=== PATIENT | female | born 1935 | race Caucasian/White ===

== ENCOUNTER → 2016-11-30 10:40 | Outpatient (CLI) | payer MEDICARE ==
[2015-07-12 12:17] VITALS: BMI 19.8
[~2016-11-30 10:40] MED LIST: AFRIN15 ML NASAL; ALBUTEROL0.63 MG/3 INH; BIOTIN5 MG PO; BYSTOLIC10 MG PO; CATAPRES0.1 MG; CELEBREX200 MG PO; CHRONULAC30 ML PO; DURAGESIC1 PATCH .2 TRANSDERM; DURAGESIC1 PATCH .4; DURAGESIC1 PATCH .7 TD; IMDUR60 MG PO; KLONOPIN0.5 MG PO; LASIX20 MG PO; LEVAQUIN750 MG PO; MYSOLINE 50 MG50 MG PO; NEURONTIN 300300 MG PO; NORVASC5 MG PO; PLAVIX75 MG PO; POTASSIUM99 M1 PO; PRILOSEC20 MG PO; PROAIR HFA8.5 GM INH; PROTONIX 40 MG40 MG IV; PROTONIX40 MG PO; RESTASIS EYE DR30 EA EACH EYE; SINGULAIR10 MG PO; TENORMIN25 MG PO; VALIUM 2 MG TAB2 MG PO; VIBRAMYCIN 100100 MG PO; VITAMIN D2000 UNIT PO; ZANAFLEX6 MG PO; ZOCOR80 MG PO; ZOVIRAX800 MG PO
== END | disposition home or self-care (01) ==
LOC: D.RAD 10:40
DX: J44.9 Chronic obstructive pulmonary disease, unspecified (principal)

== ENCOUNTER 2017-04-11 11:16 | Emergency (ER) | payer MEDICARE ==
[2015-07-12 12:17] VITALS: BMI 19.8
== END 2017-04-11 13:11 | disposition home or self-care (01) ==
LOC: D.ER 11:16
DX: S00.03XA Contusion of scalp, initial encounter (principal); W19.XXXA Unspecified fall, initial encounter; Y93.89 Activity, other specified; Y92.89 Other specified places as the place of occurrence of the external cause; I10 Essential (primary) hypertension; J44.9 Chronic obstructive pulmonary disease, unspecified; Z99.81 Dependence on supplemental oxygen

== ENCOUNTER → 2017-06-08 08:49 | Outpatient (CLI) | payer MEDICARE ==
[~2017-06-08] VITALS: Ht 154.9 cm; Wt 55.5 kg
--- NOTE | ~2017-06-08 | HEMODYNAMI ---
PATIENT:BRITT ETIENNE MEDICAL RECORD: [id number] : 39 LOCATION:[facility] ADMISSION DATE: 06/08/17 Generatedon:06/08/201712:49 Patient name: BRITT ETIENNE Patient #: [id number] SSN: : 1935 Date of study: 06/08/2017 Page: Of Hemodynamic Procedure Report Patient Data Patient Demographics Procedure consent was obtained First Name: BRITT Gender: Female Last Name: JAIMIE : 1935 [facility] Initial: HARLAN Age: 81 year(s) Patient #: [id number] Race: Additional ID: [id number] Contact details Address: [address] [address] State: [place] City: [place] Zip code: [address] Past Medical History Allergies: No known allergies Admission Admission Data Admission Date: 06/08/2017 Admission Time: 8:49 Procedure Procedure Types Cath Procedure Diagnostic Procedure LHC LHC w/Coronaries w/Grafts Miscellaneous Procedures Moderate Sedation up to 15 minutes Procedure Description Procedure Date Procedure Date: 06/08/2017 Procedure Start Time: 12:35 Procedure End Time: 12:49 Procedure Staff Name Function Dean Bonds MD Performing Physician Megha Corea RT Scrub Kory Toussaint RN Nurse Elsa Tatum RT Monitor Procedure Data Cath Procedure Fluoroscopy Diagnostic fluoroscopy Total fluoroscopy Time: 2.7 time: 2.7 min min Diagnostic fluoroscopy Total fluoroscopy dose: 318 dose: 318 mGy mGy Contrast Material Contrast Material Type Amount (ml) Isovue 300 71 Entry Location Entry Primary Successful Side Size Upsize Upsize Entry Closure Succes sful Closure Location (Fr) 1 (Fr) 2 (Fr) Remarks Device Remarks Femoral Right 5 Fr Exoseal artery Estimated blood loss: 5 ml Diagnostic catheters Device Type Used For End Catheter Placement Cordis 5Fr Pigtail LV Angiography Catheter (MP) Cordis 5Fr JL 4.0 Left Coronary Catheter (MP) Angiography Cordis 5Fr 3DRC Catheter Internal mammary (MP) arteriography Cordis 5Fr 3DRC Catheter Right Coronary (MP) Angiography Cordis 5Fr 3DRC Catheter SVG Angiography (MP) Procedure Complications No complications Procedure Medications Medication Administration Route Dosage 0.9% NaCl I.V. 100 ml/hr Oxygen NC 2 l/min Heparin Flush Bag added to field 2 bags (1000units/500ml NS) Lidocaine 2% added to field 20 Versed I.V. 1 mg Fentanyl I.V. 50 mcg Versed I.V. 1 mg Fentanyl I.V. 50 mcg Hemodynamics Rest Heart Rate: 51 (bpm) Snapshots Pre Cath Intra NCS Post Cath Vital Signs Time Heart Resp SPO2 etCO2 [id number] NIBP (mmHg) Rhythm Pain Sedation Rate (ipm) (%) (mmHg) (mmHg) Status Level (bpm) 12:29:59 52 116 100 0 0 Measuring NSR 0 (11) 10(A) , No pain 12:30:27 53 18 100 0 0 149/67(117) NSR 0 (11) 10(A) , No pain 12:35:12 51 14 100 0 0 107/58(86) NSR 0 (11) 10(A) , No pain 12:39:50 55 14 93 0 0 100/50(74) NSR 0 (11) 9(A) , No pain 12:44:25 62 14 98 0 0 113/57(89) NSR 0 (11) 9(A) , No pain 12:49:24 57 7 98 0 0 Measuring NSR 0 (11) 9(A) , No pain Medications Time Medication Route Dose Verified Delivered Reason Notes Effe ctiveness by by 12:25:09 0.9% NaCl I.V. 100 Kory Kory Per ml/hr Norbert Toussaint physician RN RN 12:25:20 Oxygen NC 2 Kory Kory Per l/min Norbert Toussaint physician RN RN 12:25:33 Heparin Flush added 2 Kory Kory used for Bag to bags Norbert Toussaint procedure (1000units/500ml field RN RN NS) 12:25:50 Lidocaine 2% added 20ml Kory Kory for local to vial Lorigan Lorigan anesthetic field RN RN 12:32:45 Versed I.V. 1 mg Kory Kory for Lorigan Lorigan sedation RN RN 12:32:55 Fentanyl I.V. 50 Kory Kory for mcg Lorigan Lorigan sedation RN RN 12:37:20 Versed I.V. 1 mg Kory Horn for Lorigan Lorigan sedation RN RN 12:37:28 Fentanyl I.V. 50 Kory Horn for mcg Lorigan Lorigan sedation RN sql programmer analyst Log Time Note 12:16:01 Elsa Tatum RT(R) sent for patient. Start room use. 12:16:02 Time tracking: Regular hours 12:16:06 Plan of Care:Hemodynamics will remain stable., Cardiac rhythm will remain stable., Comfort level will be maintained., Respiratory function will remain adequate., Patient/ family verbilizes understanding of procedure., Procedure tolerated without complication., Recovers from procedure without complications.. 12:19:59 Patient received from Pre/Post Procedure Room to CCL 1 Alert and oriented. Tansferred to table in Supine position. 12:25:09 0.9% NaCl 100 ml/hr I.V. was administered by Kory Toussaint RN; Per physician; 12:25:20 Oxygen 2 l/min NC was administered by Kory Toussaint RN; Per physician; 12:25:33 Heparin Flush Bag (1000units/500ml NS) 2 bags added to field was administered by Kory Toussaint RN; used for procedure; 12:25:50 Lidocaine 2% 20ml vial added to field was administered by Kory Toussaint RN; for local anesthetic; 12:28:49 Vital chart was started 12:30:07 Warm blankets applied, and raúl hugger turned on for patient comfort. 12:30:08 Correct patient and procedure confirmed by team. 12:30:09 Signed procedure consent form obtained from patient. 12:30:10 ECG and BP/O2 sat monitors applied to patient. 12:30:12 Baseline sample Acquired. 12:30:15 Rhythm: sinus rhythm 12:30:16 Full Disclosure recording started 12:30:30 H&P Date Dictated: 06/03/2017 Within 30 days and on chart., H&P Addendum completed by physician on day of procedure. (MUST COMPLETE FOR ALL OUTPATIENTS). 12:30:32 Pre-procedure instructions explained to patient. 12:30:32 Pre-op teaching completed and patient verbalized understanding. 12:30:33 Family in waiting room. 12:30:35 Patient NPO since Midnight. 12:30:42 Patient allergic to No known allergies 12:30:44 Is the patient allergic to Iodine/contrast media? No. 12:30:45 Is patient on blood thinner?No 12:30:48 Patient diabetic? No. 12:30:52 Previous problem with sedation/anesthesia? No ? 12:30:53 Snore? No 12:30:54 Sleep apnea? No 12:30:55 Deviated septum? No 12:30:56 Opens mouth fully? Yes 12:30:56 Sticks out tongue? Yes 12:30:59 Airway obstruction? Yes COPD 12:31:02 Dentures? No ? 12:31:05 Pre procedure: right dorsailis pedis pulse 2+ Normal; easily identifiable; not easily obliterated 12:31:07 Patient pain scale 0/10 ?. 12:31:14 IV patent on arrival in left hand with 0.9% NaCl at O. 12:31:20 Lab results completed and on chart. 12:31:23 Right groin area was prepped with chlora-prep and draped in sterile fashion 12:31:24 Alarms reviewed by R. N. 12:31:24 Sharps counted by scrub and verified by R.N. 12:31:25 Final Timeout: patient, procedure, and site verified with staff and physician. All members of the team are in agreement. 12:31:26 Right groin site verified by team. 12:31:29 Physical assessment completed. ASA score P 2 - A patient with mild systemic disease as per Dean Bonds MD. 12:31:32 Sedation plan: IV Moderate Sedation Versed, Fentanyl 12:32:45 Versed 1 mg I.V. was administered by Kory Toussaint RN; for sedation; 12:32:55 Fentanyl 50 mcg I.V. was administered by Kory Toussaint RN; for sedation; 12:35:32 Zero performed for pressure channel P1 12:35:44 Procedure started. 12:35:47 Local anesthetic to right femoral artery with Lidocaine 2% by Dean Bonds MD.INITIAL ACCESS ONLY 12:36:36 A 5 Fr sheath was inserted into the Right Femoral artery 12:37:05 Use device set Femoral Dx 12:37:06 Acist Syringe opened to sterile field. 12:37:06 Bag Decanter opened to sterile field. 12:37:06 Medline Cath Pack opened to sterile field. 12:37:07 Terumo 5Fr Tustin Sheath opened to sterile field. 12:37:07 St Thierno 260cm J .035 wire opened to sterile field. 12:37:08 Acist Hand Control opened to sterile field. 12:37:08 Acist Manifold opened to sterile field. 12:37:09 Diagnostic Infinity 5Fr Multipack catheter opened to sterile field. 12:37:09 Tegaderm 4 x 4 opened to sterile field. 12:37:13 A Cordis 5Fr Pigtail Catheter (MP) was advanced over the wire and used for LV Angiography. 12:37:20 Versed 1 mg I.V. was administered by Kory Toussaint RN; for sedation; 12:37:28 Fentanyl 50 mcg I.V. was administered by Kory Toussaint RN; for sedation; 12:37:32 LV gram done using MURPHY 12:37:39 Injector settings: Ml/sec: 10, Volume: 20, 12:37:52 Catheter removed. 12:37:58 A Cordis 5Fr JL 4.0 Catheter (MP) was advanced over the wire and used for Left Coronary Angiography. 12:40:10 Catheter removed. 12:40:24 A Cordis 5Fr 3DRC Catheter (MP) was advanced over the wire and used for Internal mammary arteriography. 12:41:22 A Cordis 5Fr 3DRC Catheter (MP) was advanced over the wire and used for Right Coronary Angiography. 12:43:07 A Cordis 5Fr 3DRC Catheter (MP) was advanced over the wire and used for SVG Angiography.to OM 12:43:08 Catheter removed. 12:43:29 Sheath removed intact; hemostasis achieved with Exoseal to the Right Femoral artery. 12:43:32 Procedure ended.(Physican Out) 12:43:45 Cordis 5Fr Exoseal opened to sterile field. 12:43:54 Fluoroscopy time 02.70 minutes. 12:43:57 Flurop Dose total: 318 12:43:57 Fluoroscopy dose: 318 mGy 12:44:00 Contrast amount:Isovue 300 71ml. 12:44:02 Sharps counted by scrub and verified by R.N. 12:44:03 Insertion/operative site no bleeding no hematoma. 12:44:05 Post-op/insertion site Right Femoral artery dressed using a 4 x 4 and Tegaderm. 12:44:09 Post right femoral artery:stable, clean and dry 12:44:10 Post Procedure Pulses reassessed and unchanged 12:44:13 Post-procedure physical assessment completed. ASA score P 2 - A patient with mild systemic disease as per Dean Bonds MD. 12:44:15 Post procedure rhythm: unchanged. 12:44:21 Estimated blood loss: 5 ml 12:44:22 Post procedure instruction explained to patient.Patient verbalizes understanding. 12:44:23 Patient needs reinforcement of post procedure teaching. 12:44:27 Procedure type changed to Cath procedure, Diagnostic procedure, LHC, LHC w/Coronaries w/Grafts, Miscellaneous Procedures, Moderate Sedation up to 15 minutes 12:44:31 Procedure Complication : No complications 12:44:33 See physician's report for complete and final results. 12:47:04 Procedure and supply charges have been captured, reviewed, submitted and are correct. 12:49:32 Vital chart was stopped 12:49:33 Report given to Pre/Post Procedure Room. 12:49:36 Patient transfered to Pre/Post Procedure Room with Stretcher. 12:49:37 Procedure ended. 12:49:37 Full Disclosure recording stopped 12:49:40 End room use (Document Last) Device Usage Item Name Manufacture Quantity Catalog Hospital Part Current Minimal Lo t# / Number Charge Number Stock Stock Serial# Code Acist Acist 1 [id number] 033382 667296 20 Syringe Medical Systems Inc Bag Microtek 1 2002S 209375 25870 792358 5 DecTYSON [employer] Medline Cardinal 1 [id number] 472249 98388 946862 5 Cath Pack Health Terumo 5Fr Terumo 1 [id number] 484464 634162 864866 [address] Thierno 1 924240 024284 715135 438185 30 260cm J .035 wire Acist Hand Acist 1 52244 633979 094937 279720 5 Control Medical Systems Inc Acist Acist 1 73276 654689 528952 721976 5 Manifold Medical Systems Inc Diagnostic Cardinal 1 [id number] 469687 53168 012777 30 Quarterlyity Health 5Fr Multipack catheter Tegaderm 4 3M 1 1626W 577867 443683 899657 5 x 4 Cordis 5Fr Cardinal 1 752067 5 Pigtail Health Catheter (MP) Cordis 5Fr Cardinal 1 629668 5 JL 4.0 Health Catheter (MP) Cordis 5Fr Cardinal 1 171290 5 3DRC Health Catheter () Cordis 5Fr Cardinal 1 EX500 013550 765180 902628 10 [facility] Signature Audit [place] Stage Time Signature Unsigned Intra-Procedure 06/08/2017 Elsa 12:49:56 PM Counts RT(R) Signatures Monitor : Elsa Signature : Counts RT Date : Time : [address] [id number] [facility] [place] [address]
[~2017-06-08 08:49] MED LIST changes: +PREMARIN0.3 MG PO; +TOPROL XL50 MG PO; +TRAMADOL HCL E100 M1 PO; +VALIUM5 MG PO
[2017-06-08 09:41] VITALS: BP 125/50; Ht 154.9 cm; Wt 55.5 kg
[2017-06-08 09:49] LABS: BASOPHILS 0.6 % (0-2); EOSINOPHILS 6.4 % (0-7); HEMATOCRIT 40.4 % (36.0-48.0); HEMOGLOBIN 13.9 g/dL (12-16); IMMATURE GRANULOCYTES 0.3 % (0-5); LYMPHOCYTES 28.1 % (15-50); MCH 34.2 pg (26.0-34.0); MCHC 34.4 g/dL (31.0-37.0); MCV 99.3 fL (80.0-100.0); MEAN PLATELET VOLUME 9.4 fL (7.4-10.4); MONOCYTES 10.5 % (2-11); NEUTROPHILS 54.1 % (40-80); PLATELET COUNT 175 10x3/uL (130-400); RBC 4.07 10x6/uL (4.00-5.40); RDW 12.9 % (11.5-14.5); WBC 6.3 10x3/uL (4.8-10.8)
[2017-06-08 10:06] LABS: ANION GAP 10.2 mmol/L (8-16); CALCIUM 9.2 mg/dL (8.5-10.1); CARBON DIOXIDE 31.9 mmol/L (21.0-32.0); CREATININE - SERUM 1.1 mg/dL (0.6-1.3); POTASSIUM - SERUM 4.1 mmol/L (3.5-5.1)
--- NOTE | 2017-06-08 13:03 | NUR ---
RECIEVED TO ROOM VIA STRETCHER FROM APICULTURIST WITH 5 FR EXOSEAL R/GROIN CDI NO BLEEDING NO HEMATOMA NOTED. INSTRUCTED PATIENT TO KEEP HEAD FLAT ON PILLOW WITH RLE STRAIGHT.
--- NOTE | 2017-06-08 13:11 | NUR ---
CHEST PAIN DENIED WITH 5 FR EXOSEAL R/GROIN CDI NO BLEEDING NO HEMATOMA NOTED. VSS INSTRUCTED PATIENT TO KEEP HEAD FLAT ON PILLOW WITH RLE STRAIGHT.
--- NOTE | 2017-06-08 13:43 | NUR ---
VSS WITH PAIN DENIED. 5 FR EXOSEAL R/GROIN CDI NO BLEEDING NO HEMATOMA NOTED.
--- NOTE | 2017-06-08 14:05 | NUR ---
R/GROIN REMAINS CDI NO BLEEDING NO HEMATOMA NOTED. PATIENT DENIED NEEDS VSS WITH FAMILY AT SIDE
--- NOTE | 2017-06-08 14:16 | NUR ---
R/GROIN CDI NO BLEEDING NO HEMATOMA NOTED. PATIENT DENIED CHEST PAIN REPOSITIONED TO SITTING WITH HEAD OF BED UP 30 DEGREES. SANDWICH AND SODA TO BEDSIDE.
--- NOTE | 2017-06-08 14:38 | NUR ---
VERBAL AND WRITTEN DISCHARGE GONE OVER WITH PATIENT AND FAMILY ALL VERBALIZED UNDERSTANDING. PIV REMOVED WITH DRESSING APPLIED. R/GROIN CDI NO BLEEDING NO HEMATOMA NOTED. PATIENT UP TO GET DRESSED FOR DISCHARGE HOME
--- NOTE | 2017-06-08 15:02 | NUR ---
RESTING QUIETLY NO DISTRESS NOTED. R/GROIN CDI NO BLEEDING NO HEMATOMA NOTED.
--- NOTE | 2017-06-11 16:47 | OP ---
PATIENT NAME: BRITT ETIENNE MEDICAL RECORD: [id number] :[birth year] LOCATION:[facility] ADMISSION DATE: SURGEON: TERESITA ANNE MD DATE OF OPERATION: 06/08/2017 PROCEDURES: 1. Left heart catheterization. 2. Selective coronary angiography. 3. Vein graft angiography. 4. DE JESUS angiography. 5. Left ventriculogram. INDICATION: Angina and coronary artery disease. PROCEDURE IN DETAIL: After an informed consent was obtained after explanation of the risks and benefits as well as alternative therapies, the patient elected to proceed with angiogram and heart catheterization. The right femoral area was prepped and draped in the normal sterile fashion. The right femoral artery was cannulated through a modified Seldinger technique with the placement of a 6-Polish sheath. All catheters were exchanged through this sheath. FINDINGS: Left ventriculogram was performed in standard 30-degree MURPHY view, reveals good cardiac wall motion and ejection fraction of 55%. SELECTIVE CORONARY ANGIOGRAPHY: 1. Left main showed no significant angiographic disease. 2. Left anterior descending is totally occluded in mid vessel. 3. DE JESUS to the LAD is widely patent. 4. Vein graft to the LAD diagonal is widely patent. 5. Left circumflex shows moderate irregularities, but no flow-limiting stenosis. 6. The right coronary has previously placed stents, these are widely patent with no significant restenosis. No disease elsewise throughout the RCA or its branches. OVERALL IMPRESSION: Wide patency of the vein graft and DE JESUS. Wide patency of the RCA and circumflex. Continue medical management of the coronary artery disease and cardiac risk factors. TRANSINT:[id number] Voice Confirmation ID: [id number] DOCUMENT ID: [id number] TERESITA ANNE MD at 1647 CC: [id number] DICTATION DATE: 06/08/17 1250 ACID PUMP OPERATOR: 06/08/17 1338 DEP CLI 06/08/17 [facility] [address] [id number]
== END | disposition home or self-care (01) ==
LOC: D.CATH 08:49
PROVIDERS: Internal Medicine Interventional Cardiology
DX: I25.119 Atherosclerotic heart disease of native coronary artery with unspecified angina pectoris (principal); I10 Essential (primary) hypertension; E78.5 Hyperlipidemia, unspecified; Z01.812 Encounter for preprocedural laboratory examination

== ENCOUNTER 2017-06-18 11:38 | Emergency (ER) | payer MEDICARE ==
[2017-06-08 09:41] VITALS: BMI 23.1
[~2017-06-18 11:38] MED LIST changes: -IMDUR60 MG PO; +ISOSORBIDE MONO30 M1 PO
[2017-06-18 14:08] LABS: BASOPHILS 0.3 % (0-2); EOSINOPHILS 4.4 % (0-7); HEMATOCRIT 37.5 % (36.0-48.0); HEMOGLOBIN 12.6 g/dL (12-16); IMMATURE GRANULOCYTES 0.4 % (0-5); LYMPHOCYTES 21.4 % (15-50); MCHC 33.6 g/dL (31.0-37.0); MCV 98.2 fL (80.0-100.0); MEAN PLATELET VOLUME 9.5 fL (7.4-10.4); MONOCYTES 5.1 % (2-11); NEUTROPHILS 68.4 % (40-80); RBC 3.82 10x6/uL (4.00-5.40); RDW 12.9 % (11.5-14.5); WBC 7.7 10x3/uL (4.8-10.8)
[2017-06-18 14:09] LABS: PLATELET COUNT 135 10x3/uL (130-400)
[2017-06-18 14:42] LABS: ALBUMIN 3.6 g/dL (3.4-5.0); ALKALINE PHOSPHATASE 50 U/L (46-116); ALT (SGPT) 43 U/L (10-68); CALC OSMOLALITY 293 mosm/kg (275-300); CARBON DIOXIDE 31.3 mmol/L (21.0-32.0); CHLORIDE - SERUM 106 mmol/L (98-107); CREATININE - SERUM 0.8 mg/dL (0.6-1.3); GLUCOSE 113 mg/dL (74-106); POTASSIUM - SERUM 4.3 mmol/L (3.5-5.1); PROTEIN - SERUM 6.2 g/dL (6.4-8.2); SODIUM 145 mmol/L (136-145); UREA NITROGEN 23 mg/dL (7-18); eGFR NON AFRICAN AMERICAN 73 mL/min (90-120)
[2017-06-18 14:45] LABS: TROPONIN-I < 0.017 ng/mL (0.000-0.060)
== END 2017-06-18 15:11 | disposition home or self-care (01) ==
LOC: D.ER 11:38
PROVIDERS: Emergency Medicine
DX: R55 Syncope and collapse (principal); J44.9 Chronic obstructive pulmonary disease, unspecified; R00.1 Bradycardia, unspecified; I44.0 Atrioventricular block, first degree

== ENCOUNTER 2017-08-09 19:18 | Inpatient (IN) | payer MEDICARE ==
[~2017-08-09] VITALS: Ht 152.4 cm; Wt 59.0 kg
[2017-08-09 20:35] LABS: APPEARANCE CLEAR (CLEAR); BILIRUBIN NEGATIVE (NEGATIVE); COLOR YELLOW (YELLOW); GLUCOSE NEGATIVE (NEGATIVE); KETONE NEGATIVE (NEGATIVE); NITRITE NEGATIVE (NEGATIVE); PROTEIN NEGATIVE (NEGATIVE); SPECIFIC GRAVITY 1.015 (1.005-1.020); UROBILINOGEN NORMAL (NORMAL)
[2017-08-09 20:51] LABS: BASOPHILS 0.3 % (0-2); EOSINOPHILS 6.5 % (0-7); HEMATOCRIT 35.6 % (36.0-48.0); HEMOGLOBIN 11.1 g/dL (12-16); IMMATURE GRANULOCYTES 0.2 % (0-5); LYMPHOCYTES 15.7 % (15-50); MCH 32.4 pg (26.0-34.0); MCHC 31.2 g/dL (31.0-37.0); MCV 103.8 fL (80.0-100.0); MEAN PLATELET VOLUME 9.2 fL (7.4-10.4); MONOCYTES 9.5 % (2-11); NEUTROPHILS 67.8 % (40-80); RBC 3.43 10x6/uL (4.00-5.40); RDW 12.8 % (11.5-14.5); WBC 9.6 10x3/uL (4.8-10.8)
[2017-08-09 20:52] LABS: PLATELET COUNT 204 10x3/uL (130-400)
[2017-08-09 21:31] LABS: ALBUMIN 2.9 g/dL (3.4-5.0); ALKALINE PHOSPHATASE 141 U/L (46-116); ALT (SGPT) 54 U/L (10-68); BILIRUBIN - TOTAL 0.24 mg/dL (0.2-1.3); CALC OSMOLALITY 284 mosm/kg (275-300); CALCIUM 8.8 mg/dL (8.5-10.1); CARBON DIOXIDE 35.4 mmol/L (21.0-32.0); CHLORIDE - SERUM 101 mmol/L (98-107); CREATINE KINASE 64 UL (21-215); CREATININE - SERUM 0.6 mg/dL (0.6-1.3); GLUCOSE 98 mg/dL (74-106); POTASSIUM - SERUM 3.9 mmol/L (3.5-5.1); PRO BNP 302 pg/mL (0-450); PROTEIN - SERUM 6.6 g/dL (6.4-8.2); SODIUM 144 mmol/L (136-145); UREA NITROGEN 8 mg/dL (7-18); eGFR NON AFRICAN AMERICAN > 90 mL/min (90-120)
[2017-08-09 21:36] LABS: TROPONIN-I < 0.017 ng/mL (0.000-0.060)
[2017-08-10 01:44] VITALS: BP 123/69; BMI 25.4
[2017-08-10] MEDS ORDERED: ZOCOR80 MG PO (01:59)
[2017-08-10] MEDS ORDERED: DICLOFENAC SODI50 MG PO (02:00)
[2017-08-10] MEDS ORDERED: REGLAN5 MG PO (02:02)
[2017-08-10] MEDS ORDERED: CENTRUM SILVER1 EAC3 PO (02:02)
[2017-08-10] MEDS ORDERED: CATAPRES0.1 MG PO (02:07)
[2017-08-10] MEDS ORDERED: POTASSIUM GLUTAMATE PO (02:14)
[2017-08-10] MEDS ORDERED: MAGNESIUM PO (02:15)
[2017-08-10] MEDS ORDERED: CYCLOBENZAPRINE10 MG PO (02:16)
[2017-08-10] MEDS ORDERED: NITROSTAT0.4 MG SL (02:16)
[2017-08-10] MEDS ORDERED: CALCIUM PO (02:17)
[2017-08-10] MEDS ORDERED: CRANBERRY PO (02:18)
[2017-08-10 04:00] VITALS: BP 127/51
[2017-08-10 09:27] VITALS: BP 103/46
[2017-08-10 10:16] LABS: BASOPHILS 0.2 % (0-2); EOSINOPHILS 5.1 % (0-7); HEMATOCRIT 35.8 % (36.0-48.0); HEMOGLOBIN 11.2 g/dL (12-16); IMMATURE GRANULOCYTES 0.2 % (0-5); MCH 32.5 pg (26.0-34.0); MCHC 31.3 g/dL (31.0-37.0); MCV 103.8 fL (80.0-100.0); MEAN PLATELET VOLUME 8.8 fL (7.4-10.4); MONOCYTES 5.7 % (2-11); NEUTROPHILS 72.8 % (40-80); PLATELET COUNT 193 10x3/uL (130-400); RBC 3.45 10x6/uL (4.00-5.40); RDW 12.7 % (11.5-14.5); WBC 8.7 10x3/uL (4.8-10.8)
[2017-08-10 10:33] LABS: ALBUMIN 2.6 g/dL (3.4-5.0); ALKALINE PHOSPHATASE 130 U/L (46-116); ALT (SGPT) 45 U/L (10-68); BILIRUBIN - TOTAL 0.24 mg/dL (0.2-1.3); CALC OSMOLALITY 278 mosm/kg (275-300); CALCIUM 8.9 mg/dL (8.5-10.1); CARBON DIOXIDE 36.2 mmol/L (21.0-32.0); CHLORIDE - SERUM 101 mmol/L (98-107); CREATININE - SERUM 0.7 mg/dL (0.6-1.3); GLUCOSE 102 mg/dL (74-106); POTASSIUM - SERUM 3.9 mmol/L (3.5-5.1); PROTEIN - SERUM 6.7 g/dL (6.4-8.2); SODIUM 141 mmol/L (136-145); UREA NITROGEN 8 mg/dL (7-18); eGFR NON AFRICAN AMERICAN 85 mL/min (90-120)
[2017-08-10 13:08] VITALS: BP 144/84
[2017-08-10 13:11] VITALS: Ht 152.4 cm; Wt 59.0 kg
[2017-08-10 17:01] VITALS: BP 101/68
[2017-08-10 20:00] VITALS: BP 114/50
--- NOTE | 2017-08-10 21:13 | NUR ---
SITTING UP IN BED. NO DISTRESS NOTED. NO COMPLAINTS VOICED. SL TO RIGHT WRIST INTACT WITHOUT REDNESS OR EDEMA NOTED. UP AD SHARON TO BR. CL IN REACH.
--- NOTE | 2017-08-11 02:00 | NUR ---
PT RESTING IN BED WITH NO DISTRESS. RESPIRATIONS EVEN AND UNLABORED. SIDE RAILS X 2. BED LOW. BED ALARM ON. CALL LIGHT IN REACH.
--- NOTE | 2017-08-11 04:49 | NUR ---
EYES CLOSED RESP EVEN AND UNLAOBRED. NO DISTRESS NOTED. CL IN REACH
[2017-08-11 06:05] LABS: BASOPHILS 0.3 % (0-2); EOSINOPHILS 6.2 % (0-7); HEMATOCRIT 34.9 % (36.0-48.0); IMMATURE GRANULOCYTES 0.2 % (0-5); LYMPHOCYTES 18.5 % (15-50); MCH 32.6 pg (26.0-34.0); MCHC 31.5 g/dL (31.0-37.0); MCV 103.6 fL (80.0-100.0); MEAN PLATELET VOLUME 9.1 fL (7.4-10.4); MONOCYTES 9.4 % (2-11); NEUTROPHILS 65.4 % (40-80); PLATELET COUNT 214 10x3/uL (130-400); RBC 3.37 10x6/uL (4.00-5.40); RDW 12.7 % (11.5-14.5); WBC 9.1 10x3/uL (4.8-10.8)
[2017-08-11 06:45] LABS: ALBUMIN 2.5 g/dL (3.4-5.0); ALKALINE PHOSPHATASE 112 U/L (46-116); ALT (SGPT) 37 U/L (10-68); BILIRUBIN - TOTAL 0.22 mg/dL (0.2-1.3); CALC OSMOLALITY 278 mosm/kg (275-300); CALCIUM 8.7 mg/dL (8.5-10.1); CARBON DIOXIDE 34.5 mmol/L (21.0-32.0); CHLORIDE - SERUM 99 mmol/L (98-107); CREATININE - SERUM 0.6 mg/dL (0.6-1.3); GLUCOSE 100 mg/dL (74-106); POTASSIUM - SERUM 3.7 mmol/L (3.5-5.1); PROTEIN - SERUM 6.3 g/dL (6.4-8.2); SODIUM 140 mmol/L (136-145); eGFR NON AFRICAN AMERICAN > 90 mL/min (90-120)
[2017-08-11 06:51] LABS: UREA NITROGEN 12 mg/dL (7-18)
--- NOTE | 2017-08-11 07:00 | NUR ---
PT REC'D FROM MARY MORAN. RESTING IN BED. LIBORIO ARRIAZA, AT BEDSIDE OBTAINING VS. VSS. AAOX4. NO COMPLAINTS OF PAIN. REGULAR HEART RATE AND RHYTHM. TELEMETRY IN PLACE. WILL CALL TO SEE RATE AND RHYTHM. LUNG SOUND CLEAR AND EQUAL BILAT. PT DOES HAVE PRODUCTIVE COUGH HOWEVER. STATES SPUTUM IS "GREEN/YELLOW/BLOODY." BOWEL SOUNDS ACTIVE X4 QUADS. HAND FUR TAILOR AND FOOT PUMPS STRONG AND EQUAL BILAT. PIV TO R FA FREE OF REDNESS AND SWELLING. BED LOW, CALL LIGHT IN REACH, DENIES NEEDS. CPOC.
[2017-08-11 08:04] VITALS: BP 107/52
[2017-08-11 16:09] VITALS: BP 103/55
[2017-08-11 20:00] VITALS: BP 132/45
--- NOTE | 2017-08-11 20:22 | NUR ---
SCHEDULED MEDICATION ADMINISTERED AT THIS TIME. AOX4. IV RIGHT FOREARM PATENT SL. O2 3L VIA NC. SCD'S ON. STAND BY ASSIST TO THE BATHROOM. STATES PAIN 3/10 THAT IS "NOT BAD, I HAVE IT ALL THE TIME." DENIES ANY OTHER NEEDS AT THIS TIME. CALL LIGHT IN REACH, WILL CONTINUE WITH PLAN OF CARE.
[2017-08-12] VITALS: BP 122/52
[2017-08-12 04:00] VITALS: BP 116/51
[2017-08-12 05:16] LABS: BASOPHILS 0.1 % (0-2); EOSINOPHILS 0 % (0-7); HEMATOCRIT 35.6 % (36.0-48.0); HEMOGLOBIN 11.5 g/dL (12-16); IMMATURE GRANULOCYTES 0.3 % (0-5); MCH 33.1 pg (26.0-34.0); MCHC 32.3 g/dL (31.0-37.0); MCV 102.6 fL (80.0-100.0); NEUTROPHILS 89.6 % (40-80); PLATELET COUNT 211 10x3/uL (130-400); RBC 3.47 10x6/uL (4.00-5.40); RDW 12.6 % (11.5-14.5); WBC 7.8 10x3/uL (4.8-10.8)
[2017-08-12 05:45] LABS: ALBUMIN 2.7 g/dL (3.4-5.0); ALKALINE PHOSPHATASE 114 U/L (46-116); ALT (SGPT) 36 U/L (10-68); CALC OSMOLALITY 284 mosm/kg (275-300); CALCIUM 9.1 mg/dL (8.5-10.1); CARBON DIOXIDE 34.7 mmol/L (21.0-32.0); CHLORIDE - SERUM 101 mmol/L (98-107); CREATININE - SERUM 0.7 mg/dL (0.6-1.3); PROTEIN - SERUM 6.7 g/dL (6.4-8.2); SODIUM 141 mmol/L (136-145); UREA NITROGEN 9 mg/dL (7-18); eGFR NON AFRICAN AMERICAN 85 mL/min (90-120)
[2017-08-12 05:48] LABS: GLUCOSE 186 mg/dL (74-106)
--- NOTE | 2017-08-12 07:00 | NUR ---
REPORT RECIEVED ASSUMED CARE. PATIENT IN BED WITH IV INTACT. NO COMPLAINTS AT THIS TIME. CALL LIGHT WITHIN REACH.
[2017-08-12 08:16] VITALS: BP 110/87
--- NOTE | 2017-08-12 09:57 | NUR ---
NUTRITION F/U PT SITTING UP IN BED. REPORTS GOOD INTAKE BREAKFAST. STATES APPETITE IS MUCH BETTER. WILL CONTINUE TO PROVIDE DIET, MONITOR PO INTAKE. RD FOLLOWING
[2017-08-12 12:14] VITALS: BP 129/52
[2017-08-12 15:38] VITALS: BP 127/51
--- NOTE | 2017-08-12 18:41 | NUR ---
PATIENT IN BED WITH IV INTACT. RECIEVED TYLENOL FOR MORRIS. ROCEPHIN GIVEN EARLIER IVP. GIVEN OVER 4 MINUTES. PATIENT IN BED WITH NO COMPLAINTS AT THIS TIME. FAMILY AT BEDSIDE. CALL LIGHT WITHIN REACH.
--- NOTE | 2017-08-12 19:50 | NUR ---
PT UP IN ROOM. DENIES ANY NEEDS AT THIS TIME. IV RIGHT FOREARM SALINE LOCKED AFTER ABX FINISHED. SCD'S ON, CALL LIGHT IN REACH. WILL CONTINUE WITH PLAN OF CARE.
[2017-08-12 20:00] VITALS: BP 144/55
[2017-08-13] VITALS: BP 119/41
--- NOTE | 2017-08-13 02:46 | NUR ---
PT RESTING QUIETLY ON LEFT SIDE WITH EYES CLOSED. NO DISTRESS NOTED. CALL LIGHT WITHIN REACH, WILL CONTINUE WITH PLAN OF CARE.
[2017-08-13 04:00] VITALS: BP 118/46
[2017-08-13 05:35] LABS: ALBUMIN 2.5 g/dL (3.4-5.0); ALKALINE PHOSPHATASE 101 U/L (46-116); ALT (SGPT) 36 U/L (10-68); BILIRUBIN - TOTAL 0.21 mg/dL (0.2-1.3); CALCIUM 8.4 mg/dL (8.5-10.1); CARBON DIOXIDE 33.5 mmol/L (21.0-32.0); CHLORIDE - SERUM 103 mmol/L (98-107); CREATININE - SERUM 0.7 mg/dL (0.6-1.3); GLUCOSE 178 mg/dL (74-106); POTASSIUM - SERUM 4.1 mmol/L (3.5-5.1); PROTEIN - SERUM 6.3 g/dL (6.4-8.2); SODIUM 142 mmol/L (136-145); eGFR NON AFRICAN AMERICAN 85 mL/min (90-120)
[2017-08-13 05:40] LABS: CALC OSMOLALITY 286 mosm/kg (275-300); UREA NITROGEN 13 mg/dL (7-18)
[2017-08-13 05:45] LABS: HEMATOCRIT 32.8 % (36.0-48.0); HEMOGLOBIN 10.7 g/dL (12-16); LYMPHOCYTES 7.2 % (15-50); MCH 32.7 pg (26.0-34.0); MCHC 32.6 g/dL (31.0-37.0); MCV 100.3 fL (80.0-100.0); MEAN PLATELET VOLUME 8.5 fL (7.4-10.4); PLATELET COUNT 233 10x3/uL (130-400); RBC 3.27 10x6/uL (4.00-5.40); WBC 11.9 10x3/uL (4.8-10.8)
--- NOTE | 2017-08-13 07:41 | NUR ---
AWAKE AND ALERT. ORIENTED X3. NO C/O AT THIS TIME. LUNGS ARE CLEAR BILATERALLY, NON PRODUCTIVE COUGH NOTED. SKIN IS INTACT WITHOUT REDNESS. IV TO RIGHT FOREARM IS PATENT WITHOUT REDNESS AT INSERTION SITE. DENIES NEEDS. UP TO AMBULATE WITH STAFF.
[2017-08-13 08:55] VITALS: BP 152/54
--- NOTE | 2017-08-13 10:00 | NUR ---
ATE ALL OF BREAKFAST. DENIES NEEDS. ASSISTED TO SHOWER PER STAFF. LINENS CHANGED.
--- NOTE | 2017-08-13 10:27 | NUR ---
Patient Name: BRITT ETIENNE Admission Status: ER Accout number: [id number] Admission Date: 08-10-2017 : 1935 Admission Diagnosis:SYNCOPE AND COLLAPSE Attending: ALEX, Current LOS: 3 Anticipated DC Date: Planned Disposition: Home Primary Insurance: MEDICARE A & B Discharge Planning Comments: CM met with patient to assess discharge planning needs. Patient lives independently at home with her (ASHLEY). Ashley will be the one to drive home at discharge. Patient has home O2 that she wears at night with [employer]. She also has a walker at home. Patient does use any HH services at this time and not sure she will need anything at discharge. CM will continue to follow and assist with discharge planning needs. PCP: Alex Ayoub in [facility] Ashley: [phone] Chief Fishery Division: Josefina Andrade * Is the patient Alert and Oriented? Yes 0 * How many steps to enter\exit or inside your home? 0 0 * PCP ALEX 0 * Pharmacy [facility] IN [place] 0 * Preadmission Environment Home with Family 0 * ADLs Independent 0 * Equipment Oxygen Walker 0 * List name and contact numbers for known caregivers / representatives who currently or will assist patient after discharge: ASHLEY [phone] * Community resources currently utilized None 0 * Additional services required to return to the preadmission environment? No 0 * Can the patient safely return to the preadmission environment? Yes 0 * Has this patient been hospitalized within the prior 30 days at any hospital? No 0 Grand Total: 0
--- NOTE | 2017-08-13 11:57 | NUR ---
REHAB PRESCREENING Rehab referral received and chart reviewed. Ms. Hickman appears to be a good candidate for rehab based on her diagnosis. PT and OT consults have been ordered. Rehab will continue to follow for results of these consults in order to see if she meets admission criteria. Thank you for this referral! Ellen Moreno CRT Rehab Tapper Helper
[2017-08-13 13:25] VITALS: BP 108/88
[2017-08-13 16:46] VITALS: BP 155/65
[2017-08-13 20:00] VITALS: BP 124/64
--- NOTE | 2017-08-13 20:10 | NUR ---
AWAKE,ALERT.NO COMPAINTS VOICED AT PRESENT. SL TO RIGHT ARM INTACT WITHOUT REDNESS OR EDEMA NOTED. CL IN REACH
[2017-08-14] VITALS: BP 143/68
--- NOTE | 2017-08-14 01:53 | NUR ---
EYES CLOSED. RESP EVEN AND UNALBORED. NO DISTRESS NOTED. CL IN REACH.
--- NOTE | 2017-08-14 01:58 | NUR ---
PATIENT IS LAYING ON HER LEFT SIDE. RESPIRATIONS ARE EVEN AND UNLABORED. NO SIGNS OF DISTRESS NOTED. BED IN LOWEST POSITION, CALL LIGHT IN REACH. BED RAILS UP X'S 2.
[2017-08-14 04:00] VITALS: BP 144/58
[2017-08-14 04:51] LABS: BASOPHILS 0 % (0-2); EOSINOPHILS 0 % (0-7); HEMATOCRIT 34.4 % (36.0-48.0); HEMOGLOBIN 10.9 g/dL (12-16); IMMATURE GRANULOCYTES 0.5 % (0-5); LYMPHOCYTES 7.7 % (15-50); MCH 32.3 pg (26.0-34.0); MCHC 31.7 g/dL (31.0-37.0); MCV 102.1 fL (80.0-100.0); MONOCYTES 7.4 % (2-11); NEUTROPHILS 84.4 % (40-80); PLATELET COUNT 232 10x3/uL (130-400); RBC 3.37 10x6/uL (4.00-5.40); RDW 12.8 % (11.5-14.5); WBC 12.8 10x3/uL (4.8-10.8)
--- NOTE | 2017-08-14 05:00 | NUR ---
AWAKE,NO COMPLAINTS VOICED. CL IN REACH
[2017-08-14 05:15] LABS: ALBUMIN 2.5 g/dL (3.4-5.0); ALKALINE PHOSPHATASE 96 U/L (46-116); ALT (SGPT) 53 U/L (10-68); BILIRUBIN - TOTAL 0.16 mg/dL (0.2-1.3); CALC OSMOLALITY 288 mosm/kg (275-300); CALCIUM 8.8 mg/dL (8.5-10.1); CHLORIDE - SERUM 101 mmol/L (98-107); CREATININE - SERUM 0.7 mg/dL (0.6-1.3); GLUCOSE 184 mg/dL (74-106); POTASSIUM - SERUM 4.2 mmol/L (3.5-5.1); PROTEIN - SERUM 6.2 g/dL (6.4-8.2); SODIUM 141 mmol/L (136-145); UREA NITROGEN 22 mg/dL (7-18); eGFR NON AFRICAN AMERICAN 85 mL/min (90-120)
[2017-08-14 09:13] VITALS: BP 151/61
--- NOTE | 2017-08-14 10:16 | NUR ---
AWAKE AND ALERT. ORIENTED X3. NO C/O AT THIS TIME. LUNGS ARE CLEAR BUT DIMINISHED ON LEFT, NON PRODUCTIVE COUGH NOTED.
--- NOTE | 2017-08-14 11:40 | NUR ---
REHAB PRESCREENING PT signed off on this patient on 08/10/17. OT evaluation notes patient can discharge with home health. Ms. Hickman does not meet admission criteria at this time. If she has a decline in function we will be happy to reassess. Thank you for this referral! Ellen Moreno, MANAGER SOFTWARE DEVELOPMENT Rehab Silk Finisher
[2017-08-14 13:16] VITALS: BP 148/72
--- NOTE | 2017-08-14 16:06 | NUR ---
AMBULATED 250 FEET WITHOUT O2. SAT 95% AFTER ACTIVITY.
--- NOTE | 2017-08-14 17:00 | NUR ---
IV TO RIGHT FOREARM INFILTRATED. RESITED TO DIFFERENT AREA OF RIGHT FOREARM WITH 22G AFTER 3 ATTEMPTS.
--- NOTE | 2017-08-14 19:04 | NUR ---
OT NOTE: PT COMPLETED DYNAMIC SITTING AND STANDING AXS WITH I. THANK YOU, DAXA KIM/Jamin
[2017-08-14 20:56] VITALS: BP 155/73
[2017-08-15] VITALS (7 sets, daily range): BP systolic 141–178; BP diastolic 59–78
[2017-08-15 04:49] LABS: BASOPHILS 0 % (0-2); EOSINOPHILS 0 % (0-7); HEMOGLOBIN 11.8 g/dL (12-16); IMMATURE GRANULOCYTES 0.3 % (0-5); LYMPHOCYTES 14.4 % (15-50); MCH 32.4 pg (26.0-34.0); MCHC 31.9 g/dL (31.0-37.0); MCV 101.6 fL (80.0-100.0); MEAN PLATELET VOLUME 9.1 fL (7.4-10.4); MONOCYTES 11.7 % (2-11); NEUTROPHILS 73.6 % (40-80); PLATELET COUNT 261 10x3/uL (130-400); RBC 3.64 10x6/uL (4.00-5.40); RDW 12.9 % (11.5-14.5); WBC 12.3 10x3/uL (4.8-10.8)
[2017-08-15 05:10] LABS: ALBUMIN 2.7 g/dL (3.4-5.0); ALKALINE PHOSPHATASE 90 U/L (46-116); ALT (SGPT) 52 U/L (10-68); CALC OSMOLALITY 283 mosm/kg (275-300); CALCIUM 8.8 mg/dL (8.5-10.1); CARBON DIOXIDE 34.8 mmol/L (21.0-32.0); CHLORIDE - SERUM 101 mmol/L (98-107); CREATININE - SERUM 0.7 mg/dL (0.6-1.3); POTASSIUM - SERUM 4.4 mmol/L (3.5-5.1); PROTEIN - SERUM 6.1 g/dL (6.4-8.2); SODIUM 141 mmol/L (136-145); UREA NITROGEN 22 mg/dL (7-18); eGFR NON AFRICAN AMERICAN 85 mL/min (90-120)
[2017-08-15 05:11] LABS: GLUCOSE 107 mg/dL (74-106)
--- NOTE | 2017-08-15 08:00 | NUR ---
AWAKE AND ALERT. ORIENTED X3. NO C/O AT THIS TIME. DENIES NEEDS. LUNGS ARE CLEAR BILATERALLY, COUGH IS DECREASED ALOT FROM PREVIOUS DAYS. WILL CONTINUE TO MONITOR.
--- NOTE | 2017-08-15 19:35 | NUR ---
RECIEVED SHIFT REPORT. PT IS LYING IN BED. ALERT AND ORIENTED AND ABLE TO VERBALIZE NEEDS. IV IS PATENT AND SALINE LOC AT THIS TIME. PT IS AMBULATORY BUT WAS INSTRUCTED TO CALL FOR ANY ASSISTANCE NEEDED. PT STATES PAIN IS 3/10. SCD'S OFF AT THIS TIME PER PT REQUEST. NO NEEDS ARE VERBALIZED AT THIS TIME. WILL CONTINUE TO MONITOR. SIDE RAILS ARE UP X 2. BED IS IN LOWEST POSITION. CALL LIGHT IS WITHIN REACH.
--- NOTE | 2017-08-15 20:43 | NUR ---
SHIFT ASSESSMENT COMPLETED. NIGHT MEDS GIVEN WITH NO PROBLEMS. NO NEEDS ARE VOICED. WILL MONITOR. SIDE RAILS X 2. BED LOW. CALL LIGHT IN REACH.
[2017-08-16 03:59] VITALS: BP 140/69
[2017-08-16 04:44] LABS: BASOPHILS 0 % (0-2); EOSINOPHILS 0 % (0-7); HEMATOCRIT 38.4 % (36.0-48.0); HEMOGLOBIN 12.3 g/dL (12-16); IMMATURE GRANULOCYTES 0.3 % (0-5); LYMPHOCYTES 17.5 % (15-50); MCH 32.4 pg (26.0-34.0); MCV 101.1 fL (80.0-100.0); MEAN PLATELET VOLUME 8.7 fL (7.4-10.4); MONOCYTES 9.8 % (2-11); NEUTROPHILS 72.4 % (40-80); PLATELET COUNT 258 10x3/uL (130-400); RDW 12.8 % (11.5-14.5); WBC 9.9 10x3/uL (4.8-10.8)
[2017-08-16 05:01] LABS: ALBUMIN 2.7 g/dL (3.4-5.0); ALKALINE PHOSPHATASE 92 U/L (46-116); ALT (SGPT) 58 U/L (10-68); CALC OSMOLALITY 284 mosm/kg (275-300); CARBON DIOXIDE 37.6 mmol/L (21.0-32.0); CHLORIDE - SERUM 100 mmol/L (98-107); CREATININE - SERUM 0.7 mg/dL (0.6-1.3); GLUCOSE 132 mg/dL (74-106); POTASSIUM - SERUM 4.4 mmol/L (3.5-5.1); SODIUM 139 mmol/L (136-145); UREA NITROGEN 27 mg/dL (7-18); eGFR NON AFRICAN AMERICAN 85 mL/min (90-120)
--- NOTE | 2017-08-16 07:52 | NUR ---
PATIENT RESTING QUIETLY IN BED. VSS. ALERT AND ORIENTED X3. NO COMPLAINTS AT THIS TIME. WILL CONTINUE TO MONITOR.
[2017-08-16 08:52] VITALS: BP 154/66
--- NOTE | 2017-08-16 09:40 | NUR ---
pt seen. no complaints at present. hoping for discharge today. has been ambulating without sob noted or voiced. call light in reach
[2017-08-16] MEDS ORDERED: MUCINEX DM ER1 EAC1 PO (10:45)
[2017-08-16] MEDS ORDERED: COLACE100 MG PO (10:46)
[2017-08-16] MEDS ORDERED: PREDNISONE10 MG PO (10:51)
[2017-08-16] MEDS ORDERED: VIBRAMYCIN 100100 MG PO (10:51)
[2017-08-16] MEDS ORDERED: OMNICEF300 MG PO (10:52)
[2017-08-16] MEDS ORDERED: FLORAJEN3 CAPS460 MG PO (10:52)
[2017-08-16] MEDS ORDERED: TUSSIONEX PENN473 ML PO (10:53)
[2017-08-16] MEDS ORDERED: BROVANA15 MCG/2 M INH (10:53)
[2017-08-16] MEDS ORDERED: PULMICORT0.5 MG/21 UPD (10:53)
--- NOTE | 2017-08-16 10:54 | NUR ---
PATIENT DISCHARGING HOME TODAY, WITH TO DRIVE HOME. PATIENT AND REFUSE HOME HEALTH AT THIS TIME. IMM SERVED PATIENT DENIES ANY OTHER CM NEEDS AT THIS TIME
--- NOTE | 2017-08-16 11:54 | NUR ---
PATIENT DISCHARGE VIA WHEELCHAIR WITH [facility] AT 1150. PATIENT EXPRESSED UNDERSTANDING OF DISCHARGE INSTRUCTIONS.
--- NOTE | 2017-08-24 12:14 | EC ---
PATIENT:BRITT ETIENNE DATE OF SERVICE: 08/10/17 SEX: F MEDICAL RECORD: [id number] DATE OF : [birth year] LOCATION:[facility] AGE OF PATIENT: 81 ADMISSION DATE: 08/10/17 REFERRING PHYSICIAN: INTERPRETING PHYSICIAN: TERSEITA BONDS MD ECHOCARDIOGRAM REPORT ECHO CHARGES 4 ECHO COMPLETE CLINICAL DIAGNOSIS: SYNCOPE ECHOCARDIOGRAPHIC MEASUREMENTS (adult normal given) AC root (d.<3.7cm) 2.7 cm LV Septum d (<1.2 cm> 1.3 cm Valve Excursion 1.7 cm LV Septum (systole) 1.8 cm Left Atria (s.<4.0cm> 3.2 cm LVPW d(<1.2cm) 1.4 cm RV (d.<2.3cm) 2.0 cm LVPW (sytole) 1.8 cm LV diastole(<5.6CM) 5.0 cm MV E-F(>70mm/sec) cm LV systole 2.8 cm LVOT Diameter 1.8 cm MV exc.(>10mm) cm Est.ejection fraction (50-75%) % Pericardial Effusion N DOPPLER: LVIT cm/sec A 65.0 cm/sec E 92.0 cm/sec LA cm/sec RVSP 77.0 mmHg LVOT 116 cm/sec AOP1/2T m/s Asc. Ao cm/sec RVOT 49.0 cm/sec RA cm/sec PA 90.0 cm/sec AV Gradient Peak mmHg AV Mean mmHg AV Area cm MV Gradient Peak 5.7 mmHg MV Mean 1.9 mmHg MV Area cm COMMENTS: Outdoor Illuminating Engineer: Janina DELGADOOE Extract Puller: 1 Dr. Bonds TAPE# PACS DATE OF SERVICE: 08/11/2017 PROCEDURE: Echocardiogram. FINDINGS: 1. Left ventricular chamber size is within normal limits. Left ventricular systolic function is normal. Overall ejection fraction estimated at 55%. 2. Left atrium is within normal limits at 3.2 cm. Right atrium and right ventricle chamber sizes are mildly dilated. 3. Valvular structures have normal structure and motion. ECHOCARDIOGRAM REPORT [id number] BRITT ETIENNE 4. Doppler interrogation reveals moderate mitral regurgitation, moderate to severe tricuspid regurgitation, no other valvular insufficiency or stenosis; however, pulmonary systolic pressure is significantly elevated estimated at 77 mmHg. 5. No evidence of pericardial effusion or left ventricular thrombus. TRANSINT:[id number] Voice Confirmation ID: [id number] DOCUMENT ID: [id number] 08/23/2017 Edited to correct date of service, dmluis. TERESITA BONDS MD at 1214 CC: [id number] DICTATION DATE: 08/12/17 1241 GREY PERCHER: 08/12/17 1459 DIS IN 08/16/17 [id number] [place] [address]
--- NOTE | 2017-08-24 12:14 | CN ---
PATIENT NAME:BRITT HICKMAN MEDICAL RECORD: [id number] : 39 LOCATION:[facility] ADMIT DATE: 08/10/17 ACCOUNT: [id number] CONSULTING PHYSICIAN: TERESITA ANNE MD REFERRING PHYSICIAN: FILI JOHNSON MD DATE OF CONSULTATION: 08/13/2017 CARDIOLOGY CONSULTATION DATE OF SERVICE: 08/13/2017 DIAGNOSES: 1. Chronic obstructive pulmonary disease. 2. Pneumonia. 3. Near syncope. 4. Bradycardia. 5. Coronary artery disease. 6. Valvular heart disease, mitral regurgitation, triscuspid regurgitation. 7. Pulmonary hypertension. 8. Systemic hypertension. 9. Previous percutaneous transluminal coronary angioplasty stent. HISTORY OF PRESENT ILLNESS: Ms. Hickman is well known to us with past history of coronary artery disease. Last cardiac intervention in 2012. She has not had any anginal symptomatology. She presents with shortness of breath, found to have pneumonia and COPD exacerbation. She as well had near syncope. She was bradycardic when she came in. Her metoprolol was stopped. Echocardiogram was obtained, her ejection fraction is normal. Her pulmonary systolic pressure was estimated at 77 mmHg. Previous echo which we have not had since 2014, had a pulmonary systolic pressure then of 44 mmHg. She has been treated for her lung disease since she has been here, her breathing has improved. PHYSICAL EXAMINATION: GENERAL APPEARANCE: Well-nourished, well-developed, appears stated age. Level of distress, comfortable. PSYCHIATRIC: Mental status, alert, normal affect. Orientation, oriented to time, place and person. EYES: Lids and conjunctiva, noninjected. No discharge, no pallor. ENT: Lips, teeth, gums, normal dentition. Oropharynx, no cyanosis, no pallor. NECK: Carotid arteries, bilateral normal upstroke, no bruits, no thrills. JUGULAR VEINS: No jugular venous pressure or distention. CERVICAL LYMPH NODES: Nontender, nonenlarged. THYROID: Not enlarged. Nontender. No nodules. LUNGS: Respiratory effort, unlabored. CHEST: Normal curvature. No thoracic deformity. No chest wall tenderness. Percussion, resonant. Auscultation, clear. No wheezes, no rales, no rhonchi. CARDIOVASCULAR: Precordial exam, nondisplaced. No heaves or pericardial thrills. Rate and rhythm, regular. Heart sounds, normal S1, normal S2. No S3, no gallop, no rub. Systolic murmur, not heard. Diastolic murmur, not heard. EXTREMITIES: No cyanosis, no edema. Peripheral pulses, full and equal in all extremities, except as noted. No bruits appreciated. ABDOMEN: Soft, nondistended. Normal aorta. No bruit. Nontender. No masses. Liver, nontender, no hepatomegaly. Spleen, nontender, no splenomegaly. MUSCULOSKELETAL: No joint tenderness. No joint swelling. No erythema. NEUROLOGICAL: Normal gait, normal strength, normal tone. CONSULT REPORT [id number] BRITT HICKMAN SKIN: Warm and dry. OVERALL IMPRESSION: 1. Bradycardia, discontinued the metoprolol. The bradycardia has resolved. 2. Ischemic heart disease. She is not having chest pain or chest discomfort. EKG is with no ST-T changes. This is not an issue at this time. 3. Pulmonary hypertension, difficult to say if this is progression of the valvular heart disease or exacerbated secondary to the COPD and pneumonia. Would repeat the echo after treatment of the COPD and pneumonia, most likely the pulmonary pressures will come down closer to what they were previously. TRANSINT:[id number] Voice Confirmation ID: [id number] DOCUMENT ID: [id number] TERESITA ANNE MD at 1214 CC: [id number] DICTATION DATE: 08/13/17 1119 PROGRAM SUPPORT ASSISTANT: 08/13/17 1209 DIS IN 08/16/17 [place] [id number] [place] [id number]
--- NOTE | 2017-09-09 14:06 | CN ---
PATIENT NAME:BRITT HICKMAN MEDICAL RECORD: [id number] : 39 LOCATION:[facility] ADMIT DATE: 08/10/17 ACCOUNT: [id number] CONSULTING PHYSICIAN: NATHALIE JOHNSON MD REFERRING PHYSICIAN: HOMER JOHNSON MD DATE OF CONSULTATION: 08/11/2017 CONSULT REQUESTING PHYSICIAN: Homer Johnson MD REASON FOR CONSULTATION: Acute exacerbation of chronic obstructive pulmonary disease and near syncopal episode. HISTORY OF PRESENT ILLNESS: Ms. Hickman is a 81-year-old female, very well known to me. According to the patient, she was at [facility] for 12 days. She has multiple testing and workup while she was there. The patient has cold, the patient came into home, and she had near syncopal episode. She is also coughing, wheezing, and shortness of breath. The patient was brought into the ER with acute exacerbation of chronic obstructive pulmonary disease. REVIEW OF SYSTEMS: As in history of present illness. PAST MEDICAL HISTORY: 1. COPD. 2. Congestive heart failure. 3. History of syncopal episode, workup at [facility] and [facility]. 4. Coronary artery disease, status post cardiac catheterization and stent placement. 5. Peripheral vascular disease. 6. History of asthma. 7. She has gastroesophageal reflux disease. 8. Depression. PAST SURGICAL HISTORY: 1. Appendectomy. 2. Bilateral carotid endarterectomy. 3. Hysterectomy. 4. Back surgery. 5. Carpal tunnel surgery. ALLERGIES: There are no known drug allergies. PRESENT MEDICATIONS: On [facility] ([facility]) was reviewed. PERSONAL AND SOCIAL HISTORY: The patient is . She lives with her . She is an ex-smoker. She is a nondrinker. FAMILY HISTORY: Significant for cardiovascular disease. PHYSICAL EXAMINATION: GENERAL: The patient is lying comfortably. She is not in acute distress. VITAL SIGNS: The blood pressure is 107/52, pulse is 92, respiration is 18, temperature is 98.2, and SpO2 92% on 3 liters nasal cannula. HEENT: Conjunctivae pink, sclerae nonicteric. NECK: Supple, no JVD. CHEST: Excursion is minimal on both sides. There is wheeze on forceful CONSULT REPORT [id number] BRITT HICKMAN expiration. HEART: Rhythm regular, normal sound, no murmur. ABDOMEN: Soft, bowel sounds present. No hepatosplenomegaly. RECTAL: Deferred. EXTREMITIES: No cyanosis, no clubbing, no pedal edema. SKIN: Warm, normal turgor. CENTRAL NERVOUS SYSTEM: The patient is awake and alert. There are no obvious cranial nerve abnormality. The gait was not tested. IMAGING: CT scan of the chest: There was no PE. There is bilateral pulmonary nodule. There are small bilateral pleural effusions with basilar consolidations. OTHER LABORATORY DATA: CBC: The WBC is 9.1, hemoglobin 11, hematocrit 34.9, and the platelet count is 214. Chemistry: Sodium is 140, potassium 3.7, BUN is 12, creatinine 0.6. IMPRESSION: 1. Acute exacerbation of chronic obstructive pulmonary disease. 2. Ehrbi-ep-glscmra hypoxic respiratory failure. 3. Pneumonia, bibasilar, possible community-acquired pneumonia. 4. Near syncopal episode, the etiology is not clear, possible pulmonary hypertension. 5. History of pulmonary nodule that is stable. RECOMMENDATION: Start on doxycycline IV, Rocephin IV, methylprednisolone IV, albuterol/ipratropium nebulizer, Brovana and budesonide nebulizer, supplemental oxygen is required. We will get all the records from [facility] to my office. Dr. Johnson, thank you for involving me in the care of Ms. Hickman. TRANSINT:[id number] Voice Confirmation ID: [id number] DOCUMENT ID: [id number] NATHALIE JOHNSON MD at 1406 CC: GOYO BROOKS MD [id number] DICTATION DATE: 08/11/17 1534 DIRECTOR OF VITAL STATISTICS: 08/11/17 1634 DIS IN 08/16/17 [facility] [address] [place] [place] [address]
== END 2017-08-16 11:54 | disposition home or self-care (01) | DRG 193 ==
LOC: D.ER 19:18 → OBSVTIME 23:24 → D.MS 23:24
PROVIDERS: Family Medicine; ADMIT Family Medicine
DX: J18.9 Pneumonia, unspecified organism (principal); G93.41 Metabolic encephalopathy; J96.20 Acute and chronic respiratory failure, unspecified whether with hypoxia or hypercapnia; J44.1 Chronic obstructive pulmonary disease with (acute) exacerbation; N39.0 Urinary tract infection, site not specified; R55 Syncope and collapse; I25.10 Atherosclerotic heart disease of native coronary artery without angina pectoris; R00.1 Bradycardia, unspecified; I73.9 Peripheral vascular disease, unspecified

== ENCOUNTER 2017-09-18 13:03 | Emergency (ER) | payer MEDICARE ==
[2017-08-10 13:11] VITALS: BMI 25.3
[~2017-09-18 13:03] MED LIST changes: +BROVANA15 MCG/2 M INH; +CALCIUM PO; +CATAPRES0.1 MG PO; +CENTRUM SILVER1 EAC3 PO; +COLACE100 MG PO; +CRANBERRY PO; +CYCLOBENZAPRINE10 MG PO; +DICLOFENAC SODI50 MG PO; +FLORAJEN3 CAPS460 MG PO; +MAGNESIUM PO; +MUCINEX DM ER1 EAC1 PO; +NITROSTAT0.4 MG SL; +OMNICEF300 MG PO; +POTASSIUM GLUTAMATE PO; +PREDNISONE10 MG PO; +PULMICORT0.5 MG/21 UPD; +REGLAN5 MG PO; +TUSSIONEX PENN473 ML PO
[2017-09-18 13:51] LABS: BASOPHILS 0.1 % (0-2); EOSINOPHILS 1.8 % (0-7); HEMOGLOBIN 10.8 g/dL (12-16); IMMATURE GRANULOCYTES 0.2 % (0-5); LYMPHOCYTES 10.9 % (15-50); MCHC 32.7 g/dL (31.0-37.0); MCV 97.9 fL (80.0-100.0); MEAN PLATELET VOLUME 9.1 fL (7.4-10.4); MONOCYTES 11.8 % (2-11); NEUTROPHILS 75.2 % (40-80); RBC 3.37 10x6/uL (4.00-5.40); RDW 13.7 % (11.5-14.5); WBC 8.5 10x3/uL (4.8-10.8)
[2017-09-18 13:53] LABS: PLATELET COUNT 177 10x3/uL (130-400)
== END 2017-09-18 15:51 | disposition home or self-care (01) ==
LOC: D.ER 13:03
PROVIDERS: Emergency Medicine
DX: B34.9 Viral infection, unspecified (principal); I10 Essential (primary) hypertension; J44.9 Chronic obstructive pulmonary disease, unspecified; Z99.81 Dependence on supplemental oxygen

== ENCOUNTER → 2017-12-03 13:08 | Outpatient (CLI) | payer MEDICARE ==
[2017-08-10 13:11] VITALS: BMI 25.3
== END | disposition home or self-care (01) ==
LOC: D.CT 13:08
DX: J18.9 Pneumonia, unspecified organism (principal); R91.8 Other nonspecific abnormal finding of lung field

== ENCOUNTER 2018-08-29 05:30 | Day surgery (SDC) | payer MEDICARE ==
[~2018-08-29] VITALS: Ht 152.4 cm; Wt 61.4 kg
--- NOTE | ~2018-08-29 | OP ---
PATIENT NAME: BRITT ETIENNE MEDICAL RECORD: [id number] :39 LOCATION:[facility] ADMISSION DATE: SURGEON: NORBERT MCKEON DO DATE OF OPERATION: 08/29/2018 PROCEDURE: EGD with biopsies. INDICATIONS FOR PROCEDURE: Heartburn, nausea and vomiting, epigastric pain. SCOPE: Olympus video gastroscope. MEDICATIONS: Propofol 70 mg IV per anesthesia. ESTIMATED BLOOD LOSS: Minimal. COMPLICATIONS: None. FINDINGS: Informed consent was given. The patient was made comfortable with the above medication. After reaching an adequate level of sedation by slow IV push, the patient was placed on her left side. The endoscope was advanced under direct visualization through the mouth to the second portion of the duodenum. In the esophagus, there was moderate, but diffuse esophageal candidiasis present. Cold forceps biopsies were taken from the mid esophagus to confirm this. At the GE junction, there were some minor changes consistent with reflux esophagitis. Appearances were consistent with LA class A reflux-induced esophagitis. The endoscope was advanced beyond the GE junction into the stomach and retroflexed to view the cardia and fundus, which appeared normal. Throughout the body of the stomach as well as the antrum and prepyloric region, there were patchy areas of erythema, granularity, and friability consistent with gastritis. Random cold forceps biopsies were taken from these sites to submit for histopathology and to rule out the presence of H. pylori. The endoscope was advanced beyond the pylorus into the duodenum. The duodenum appeared normal down to the second portion. The endoscope was withdrawn from the patient. The patient tolerated the procedure well and there were no complications. IMPRESSION: 1. Moderate diffuse candidal esophagitis. 2. LA class A reflux-induced esophagitis. 3. Patchy gastritis with biopsies pending. PLAN AND RECOMMENDATIONS: 1. Discharge home when recovery parameters are met. 2. Follow up biopsy specimen results. 3. Continue current medications. 4. We will give a 10-day course of fluconazole to treat esophageal candidiasis. 5. We will arrange a right upper quadrant ultrasound and gastric emptying scan regarding the patient's heartburn, nausea and vomiting, epigastric pain, early satiety, and pain with eating. 6. I suspect the patient's abdominal pain and gastritis is complicated by the fact that she takes multiple medications, totalling over 20. 7. Recommend continuing pantoprazole 40 mg daily for GI prophylaxis and continuing as needed Carafate for symptoms. 8. Can add a Zantac or Pepcid in the evening if breakthrough symptoms are occurring. OPERATIVE REPORT [id number] BRITT ETIENNE TRANSINT:[id number] Voice Confirmation ID: [id number] DOCUMENT ID: [id number] NORBERT MCKEON DO at 1554 CC: [id number] DICTATION DATE: 08/29/1843 [place] CONSULTANT: 08/29/[address] [facility] 08/29/18 [facility] [address] [place] [address]
[2018-08-29 05:49] LABS: BASOPHILS 0.5 % (0-2); EOSINOPHILS 7.7 % (0-7); HEMOGLOBIN 13.3 g/dL (12-16); IMMATURE GRANULOCYTES 0.2 % (0-5); LYMPHOCYTES 32.7 % (15-50); MCH 32.7 pg (26.0-34.0); MCHC 33.3 g/dL (31.0-37.0); MCV 98.3 fL (80.0-100.0); MEAN PLATELET VOLUME 9.2 fL (7.4-10.4); MONOCYTES 9.9 % (2-11); PLATELET COUNT 166 10x3/uL (130-400); RBC 4.07 10x6/uL (4.00-5.40); RDW 12.8 % (11.5-14.5); WBC 6.7 10x3/uL (4.8-10.8)
[2018-08-29 06:00] LABS: CALC OSMOLALITY 286 mosm/kg (275-300); CALCIUM 8.9 mg/dL (8.5-10.1); CARBON DIOXIDE 31.9 mmol/L (21.0-32.0); CHLORIDE - SERUM 105 mmol/L (98-107); CREATININE - SERUM 0.7 mg/dL (0.6-1.3); GLUCOSE 118 mg/dL (74-106); POTASSIUM - SERUM 3.2 mmol/L (3.5-5.1); SODIUM 144 mmol/L (136-145); UREA NITROGEN 10 mg/dL (7-18); eGFR NON AFRICAN AMERICAN 85 mL/min (90-120)
[2018-08-29 06:50] VITALS: BP 97/63; Ht 152.4 cm; Wt 61.4 kg
[2018-08-29] MEDS ORDERED: DICLOFENAC SODI50 MG PO (07:06)
== END 2018-08-29 09:49 | disposition home or self-care (01) ==
LOC: D.OPS 05:30
PROVIDERS: Anesthesiology
DX: B37.81 Candidal esophagitis (principal); K21.0 Gastro-esophageal reflux disease with esophagitis; K29.70 Gastritis, unspecified, without bleeding; Z01.812 Encounter for preprocedural laboratory examination

== ENCOUNTER → 2018-09-01 08:01 | Outpatient (CLI) | payer MEDICARE ==
[2018-08-29 06:50] VITALS: BMI 26.4
== END | disposition home or self-care (01) ==
LOC: D.US 08:01 → D.NM 09:30
DX: R10.9 Unspecified abdominal pain (principal); R12 Heartburn; R11.2 Nausea with vomiting, unspecified

== ENCOUNTER 2018-09-16 11:48 | Emergency (ER) | payer MEDICARE ==
[~2018-09-16] VITALS: Ht 152.4 cm; Wt 55.5 kg
[2018-09-16 12:02] VITALS: Ht 152.4 cm; Wt 55.5 kg
[2018-09-16] MEDS ORDERED: CELEBREX 100 M100 MG PO (12:09)
[2018-09-16 14:15] VITALS: BP 126/57
== END 2018-09-16 14:00 | disposition home or self-care (01) ==
LOC: D.ER 11:48
DX: S39.012A Strain of muscle, fascia and tendon of lower back, initial encounter (principal); W18.30XA Fall on same level, unspecified, initial encounter; Y93.89 Activity, other specified; Y92.019 Unspecified place in single-family (private) house as the place of occurrence of the external cause

== ENCOUNTER 2018-10-27 12:28 | Observation (INO) | payer MEDICARE ==
[~2018-10-27] VITALS: Ht 152.4 cm; Wt 58.5 kg
--- NOTE | ~2018-10-27 | HEMODYNAMI ---
PATIENT:BRITT ETIENNE MEDICAL RECORD: [id number] : 39 LOCATION:[facility] D.2118 ADMISSION DATE: 10/27/18 Generatedon:10/28/20189:48 Patient name: BRITT ETIENNE Patient #: [id number] SSN: : 1935 Date of study: 10/28/2018 Page: Of Hemodynamic Procedure Report Patient Data Patient Demographics Procedure consent was obtained First Name: BRITT Gender: Female Last Name: JAIMIE : 1935 Middle Initial: HARLAN Age: 83 year(s) Patient #: [id number] Race: Additional ID: [id number] Contact details Address: [address] [place] [address] State: [place] City: [place] Zip code: [address] Past Medical History Allergies: No known allergies Admission Admission Data Admission Date: 10/27/2018 Admission Time: 15:05 Room #: [facility]8 Procedure Procedure Types Cath Procedure Diagnostic Procedure LHC LHC w/Coronaries w/Grafts FFR/IVUS Intra-Coronary IVUS Initial Intra-Coronary IVUS Additional Sedation Charges Moderate Sedation up to 30 minutes PCI Procedure Coronary Stent Coronary Stent Initial x2 Procedure Description Procedure Date Procedure Date: 10/28/2018 Procedure Start Time: 9:16 Procedure End Time: 9:37 Procedure Staff Name Function Elsa Tatum RT Monitor Daryl Chapa RT Home Appliances Mechanic Dean Bonds MD Performing Physician Marian Ortega RN Nurse Laura Holt RT Scrub Procedure Data Cath Procedure Fluoroscopy Diagnostic fluoroscopy Total fluoroscopy Time: 6.2 time: 6.2 min min Diagnostic fluoroscopy Total fluoroscopy dose: 382 dose: 382 mGy mGy Contrast Material Contrast Material Type Amount (ml) Isovue 300 120 Entry Location Entry Primary Successful Side Size Upsize Upsize Entry Closure Succes sful Closure Location (Fr) 1 (Fr) 2 (Fr) Remarks Device Remarks Femoral Right 5 Fr 6 Fr Exoseal artery Short Estimated blood loss: 10 ml Diagnostic catheters Device Type Used For End Catheter Placement MULTIPACK Pigtail 5 Fr LV Angiography catheter MULTIPACK JL 4.0 5Fr Left Coronary catheter Angiography MULTIPACK 3DRC 5Fr Internal mammary catheter arteriography MULTIPACK 3DRC 5Fr Right Coronary catheter Angiography DIAGNOSTIC AR1 MOD 5Fr SVG Angiography catheter ([id number]) Procedure Complications No complications Procedure Medications Medication Administration Route Dosage 0.9% NaCl I.V. 100 ml/hr Oxygen etCO2 Nasal cannula 2 l/min Lidocaine 2% added to field 20 Heparin Flush Bag added to field 2 bags (1000units/500ml NS) Versed I.V. 2 mg Fentanyl I.V. 50 mcg Versed I.V. 2 mg Fentanyl I.V. 50 mcg Heparin Bolus I.V. 4000 units Plavix P.O. 75 mg Hemodynamics Rest Heart Rate: 72 (bpm) Snapshots Pre Cath Intra NCS Post Cath Vital Signs Time Heart Resp SPO2 etCO2 NIBP (mmHg) Rhythm Pain Sedation Rate (ipm) (%) (mmHg) Status Level (bpm) 9:03:03 72 21 99 16 158/77(122) NSR 0 (11) 10(A) , No pain 9:07:25 73 15 97 38 165/82(126) NSR 0 (11) 10(A) , No pain 9:11:47 73 17 100 35 158/78(124) NSR 0 (11) 10(A) , No pain 9:16:11 74 14 100 44.7 144/77(116) NSR 0 (11) 10(A) , No pain 9:20:31 69 10 100 14.9 147/65(115) NSR 0 (11) 9(A) , No pain 9:24:50 71 11 100 15.6 147/68(112) NSR 0 (11) 9(A) , No pain 9:29:10 71 13 100 46.9 133/61(107) NSR 0 (11) 9(A) , No pain 9:33:24 70 25 100 17.8 134/70(108) NSR 0 (11) 10(A) , No pain Medications Time Medication Route Dose Verified Delivered Reason Notes Effectiveness by by 9:02:21 0.9% NaCl I.V. 100 Dean Fonseca used for ml/hr Cammie Ortega [employer] music director 9:02:29 Oxygen etCO2 2 Dean Marian used for Nasal l/min Cammie Ortega procedure cannula RN 9:02:34 Lidocaine 2% added 20ml Dean Dean for local to vial Cammie Bonds MD anesthetic field 9:02:39 Heparin Flush added 2 Dean Dean used for Bag to bags Cammie Bonds MD procedure (1000units/500ml field NS) 9:15:17 Versed I.V. 2 mg Edan Marian for sedation Cammie Ortega RN 9:15:23 Fentanyl I.V. 50 Dean Marian for sedation mcg Cammie Ortega RN 9:19:48 Versed I.V. 2 mg Dean Marian for sedation Cammie Ortega RN 9:19:53 Fentanyl I.V. 50 Dean Marian for sedation mcg Cammie Ortega RN 9:24:28 Heparin Bolus I.V. 4000 Dean Marian for verifi ed units Cammie Ortega anticoagulation with Dr. JOSE Bonds 9:24:43 Plavix P.O. 75 mg Dean Marian for Cammie Ortega antiplatelet RN therapy Procedure Log Time Note 8:49:16 Time tracking: Regular hours (M-F 7:00 - 5:00) 8:49:19 Plan of Care:Hemodynamics will remain stable., Cardiac rhythm will remain stable., Comfort level will be maintained., Respiratory function will remain adequate., Patient/ family verbilizes understanding of procedure., Procedure tolerated without complication., Recovers from procedure without complications.. 8:49:21 Daryl MCCOLLUM(R) sent for patient. Start room use. 9:00:04 Patient received from PCU to CCL 1 Alert and oriented. Tansferred to table in Supine position. 9:00:05 Correct patient and procedure confirmed by team. 9:00:05 Warm blankets applied, and raúl hugger turned on for patient comfort. 9:00:07 Signed procedure consent form obtained from patient. 9:00:10 ECG and BP/O2 sat monitors applied to patient. 9:00:11 Full Disclosure recording started 9:00:54 H&P Date Dictated: 10/27/2018 Within 30 days and on chart.. 9:01:00 Rhythm: sinus rhythm 9:01:03 Pre-procedure instructions explained to patient. 9:01:06 Pre-op teaching completed and patient verbalized understanding. 9:01:13 Family in patients room. 9:01:15 Patient NPO since Midnight. 9:01:24 Patient allergic to No known allergies 9:01:26 Is the patient allergic to Iodine/contrast media? No. 9:01:28 Is patient on blood thinner?Yes 9:01:30 ACC The patient was administered the following blood thiners within the last 24 hours: ACCPlavix 9:01:32 Patient diabetic? No. 9:01:37 Previous problem with sedation/anesthesia? No ? 9:01:41 Snore? Yes 9:01:42 Sleep apnea? No 9:01:44 Deviated septum? No 9:01:45 Opens mouth fully? Yes 9:01:46 Sticks out tongue? Yes 9:01:52 Airway obstruction? Yes COPD 9:01:54 Vital chart was started 9:01:55 Dentures? No ? 9:01:58 Pre procedure: right dorsailis pedis pulse 2+ Normal; easily identifiable; not easily obliterated 9:02:01 Patient pain scale 0/10 ?. 9:02:07 IV patent on arrival in left forearm with 0.9% NaCl at KVO. 9:02:10 Lab results completed and on chart. 9:02:13 Right groin area was prepped with chlora-prep and draped in sterile fashion 9:02:14 Sharps counted by scrub and verified by R.N. 9:02:14 Alarms reviewed by R. N. 9:02:18 Use device set Femoral Dx 9:02:19 Bag Decanter (2002) opened to sterile field. 9:02:19 ACIST Syringe (32871) opened to sterile field. 9:02:20 DIAGNOSTIC WIRE .035 260cm J wire (921326) opened to sterile field. 9:02:20 Medline Cath Pack ([id number]) opened to sterile field. 9:02:21 ACIST Hand Control (61425) opened to sterile field. 9:02:21 0.9% NaCl 100 ml/hr I.V. was administered by Marian Ortega RN; used for procedure; 9:02:22 DIAGNOSTIC Multipack 5Fr catheter set (HY0264) opened to sterile field. 9:02:22 ACIST Manifold (44462) opened to sterile field. 9:02:23 Tegaderm 4 x 4 (1626W) opened to sterile field. 9:02:24 SHEATH 5FR Lamont (BSL506) opened to sterile field. 9:02:29 Oxygen 2 l/min etCO2 Nasal cannula was administered by Marian Ortega RN; used for procedure; 9:02:34 Lidocaine 2% 20ml vial added to field was administered by Dean Bonds MD; for local anesthetic; 9:02:39 Heparin Flush Bag (1000units/500ml NS) 2 bags added to field was administered by Dean Bonds MD; used for procedure; 9:04:02 Baseline sample Acquired. 9:14:40 Final Timeout: patient, procedure, and site verified with staff and physician. All members of the team are in agreement. 9:14:42 Right groin site verified by team. 9:14:46 Fire Safety Assessment: A--An alcohol-based skin anteseptic being used preoperatively., C--Open oxygen or nitrous oxide is being used., D--An ESU, laser, or fiber-optic light is being used. 9:14:49 Physical assessment completed. ASA score P 2 - A patient with mild systemic disease as per Dean Bonds MD. 9:14:51 Sedation plan: IV Moderate Sedation Medication:Versed, Fentanyl 9:15:17 Versed 2 mg I.V. was administered by Marian Ortega RN; for sedation; 9:15:23 Fentanyl 50 mcg I.V. was administered by Marian Ortega RN; for sedation; 9:16:18 Procedure started. 9:16:21 Local anesthetic to right femoral artery with Lidocaine 2% by Dean Bonds MD.INITIAL ACCESS ONLY 9:16:25 Zero performed for pressure channel P1 9:16:28 Zero performed for pressure channel P1 9:16:30 Zero performed for pressure channel P1 9:16:46 A 5 Fr sheath was inserted into the Right Femoral artery 9:17:12 A MULTIPACK Pigtail 5 Fr catheter was advanced over the wire and used for LV Angiography. 9:17:57 LV gram done using MURPHY 9:18:01 Injector settings: Ml/sec: 7, Volume: 15, 9:18:03 Catheter removed. 9:18:20 A MULTIPACK JL 4.0 5Fr catheter was advanced over the wire and used for Left Coronary Angiography. 9:19:17 Use device set [facility] PCI 9:19:25 [place] IVUS Catheter ([id number]) opened to sterile field. 9:19:26 SHEATH 6FR Lamont (RGO617) opened to sterile field. 9:19:29 INFLATOR Merit BasixCompak (BX8120) opened to sterile field. 9:19:32 CHOICE PT Extra Support 182cm wire ([id number]) opened to sterile field. 9:19:37 Catheter removed. 9:19:45 A MULTIPACK 3DRC 5Fr catheter was advanced over the wire and used for Internal mammary arteriography. TO LAD 9:19:48 Versed 2 mg I.V. was administered by Marian Ortega RN; for sedation; 9:19:53 Fentanyl 50 mcg I.V. was administered by Marian Ortega RN; for sedation; 9:20:57 A MULTIPACK 3DRC 5Fr catheter was advanced over the wire and used for Right Coronary Angiography. 9:21:03 Catheter removed. 9:22:43 A DIAGNOSTIC AR1 MOD 5Fr catheter ([id number]) was advanced over the wire and used for SVG Angiography. TO DIAG? 9:23:17 GUIDE 6FR 3DRC catheter ([id number]) opened to sterile field. 9:23:28 Catheter removed. 9:23:36 Sheath upsized to a 6 Fr Short. 9:23:45 6 Fr EBU 3.0 SH guide catheter was inserted over the wire 9:24:24 GUIDE 6FR EBU 3.0 SH catheter ([id number]) opened to sterile field. 9:24:28 Heparin Bolus 4000 units I.V. was administered by Marian Ortega RN; for anticoagulation; verified with Dr. Bonds 9:24:39 CHOICE PT ES wire advanced. 9:24:43 Plavix 75 mg P.O. was administered by Marian Ortega RN; for antiplatelet therapy; 9:25:29 IVUS catheter advanced over wire. 9:25:36 IVUS pass to LMCA lesion performed. 9:26:20 IVUS catheter removed over wire. 9:28:07 Place stent Inflation Number: 1 A FELICIA RX 3.0 x 15 stent ([id number]) was prepped and advanced across the LMCA. The stent was deployed at 17 KELSEY for 0:09 (min:sec). 9:28:23 Stent catheter was removed intact over wire. 9:28:24 Wire removed. 9:28:27 Guide catheter removed. 9:29:02 6 Fr 3DRC guide catheter was inserted over the wire 9:29:50 CHOICE PT ES wire advanced. 9:30:15 IVUS catheter advanced over wire. 9:30:34 IVUS pass to RCA lesion performed. 9:31:35 IVUS catheter removed over wire. 9:33:29 Place stent Inflation Number: 1 A FELICIA RX 3.5 x 22 stent ([id number]) was prepped and advanced across the Mid RCA. The stent was deployed at 13 KELSEY for 0:02 (min:sec). 9:33:49 Inflation number: 2 The stent balloon was then re-inflated across the Mid RCA to 21 KELSEY for 0:04 (min:sec). 9:34:01 Stent catheter was removed intact over wire. 9:34:02 Wire removed. 9:34:04 Guide catheter removed. 9:34:17 Sheath removed intact; hemostasis achieved with Exoseal to the Right Femoral artery. 9:34:19 Procedure ended.(Physican Out) 9:35:05 Fluoroscopy time 06.20 minutes. 9:35:08 Fluoroscopy dose: 382 mGy 9:35:08 Flurop Dose total: 382 9:35:20 Contrast amount:Isovue 300 120ml. 9:35:21 Sharps counted by scrub and verified by R.N. 9:35:22 Insertion/operative site no bleeding no hematoma. 9:35:26 Post-op/insertion site Right Femoral artery dressed using a 4 x 4 and Tegaderm. 9:35:29 Post right femoral artery:stable, clean and dry 9:35:39 Post Procedure Pulses reassessed and unchanged 9:35:40 Post-procedure physical assessment completed. ASA score P 2 - A patient with mild systemic disease as per Dean Bonds MD. 9:35:42 Post procedure rhythm: unchanged. 9:35:46 Estimated blood loss: 10 ml 9:35:48 Post procedure instruction explained to patient.Patient verbalizes understanding. 9:35:48 Patient needs reinforcement of post procedure teaching. 9:36:05 Post right femoral artery:bleeding 9:36:12 Procedure type changed to Cath procedure, Diagnostic procedure, LHC, LHC w/Coronaries w/Grafts, FFR/IVUS, Intra-Coronary IVUS Initial, Intra-Coronary IVUS Additional, Sedation Charges, Moderate Sedation up to 30 minutes, PCI procedure, Coronary Stent, Coronary Stent Initial x2 9:36:19 Femstop placed over the right femoral artery at 150 mmHg. Hemostasis achieved. 9:36:40 Procedure Complication : No complications 9:36:41 See physician's report for complete and final results. 9:36:52 Procedure and supply charges have been captured, reviewed, submitted and are correct. 9:36:55 Vital chart was stopped 9:37:02 Report given to PCU. 9:37:05 Patient transfered to PCU with Bed. 9:37:14 Procedure ended. 9:37:14 Full Disclosure recording stopped 9:37:35 EXOSEAL 6Fr (EX600) opened to sterile field. 9:37:53 End room use (Document Last) Intervention Summary Intervention Notes Time ActionType Lesion and Equipment Used Action# Pressure Duration Attributes 9:28:07 Place stent LMCA FELICIA RX 3.0 x 1 17 00:09 15 stent ([id number]) 9:33:29 Place stent Mid RCA FELICIA RX 3.5 x 1 13 00:02 22 stent ([id number]) 9:33:49 Reinflate Mid RCA FELICIA RX 3.5 x 2 21 00:04 stent 22 stent balloon ([id number]) Device Usage Item Name Manufacture Quantity Catalog Number Hospital Part Current M inimal Lot# / Charge Number Stock Stock Serial# Code ACIST Syringe Acist 1 81789 299574 059941 831421 2 0 (72623) Medical Systems Inc Bag Decanter Microtek 1 823074 59362 992950 5 () Medical Inc. Medline Cath Medline 1 [id number] 931168 23396 047453 5 Pack ([id number]) DIAGNOSTIC St Thierno 1 163691 954949 024489 001530 3 0 WIRE .035 260cm J wire (789650) ACIST Hand Acist 1 77343 970011 124547 652146 5 Control Medical (05550) Systems Inc ACIST Manifold Acist 1 57922 579281 664664 927724 5 (39562) Medical Systems Inc DIAGNOSTIC Cardinal 1 JD1141 026426 38223 121945 3 0 Multipack 5Fr Health catheter set (NV7558) Tegaderm 4 x 4 3M 1 1626W 420324 083876 969273 5 (1626W) SHEATH 5FR Terumo 1 AGI159 291098 059427 754181 5 Lamont (ONO481) MULTIPACK Cardinal 1 340119 5 Pigtail 5 Fr Health catheter MULTIPACK JL Cardinal 1 021844 5 4.0 5Fr Health catheter [place] 1 55258U 748194 210094 204159 8 [place] IVUS Catheter (11909Z) SHEATH 6FR Terumo 1 YRS363 443754 663190 320123 4 0 Lamont (QQC817) INFLATOR Merit Merit 1 KP8134 733503 566169 859795 1 5 gulu.com (SW7021) CHOICE PT [place] 1 [id number] 605755 609027 923839 5 Extra Support Scientific 182cm wire ([id number]) MULTIPACK 3DRC Cardinal 1 231216 5 5Fr catheter Health DIAGNOSTIC AR1 Cardinal 1 325161M 286549 460228 461160 1 5 MOD 5Fr Health catheter (916689U) GUIDE 6FR 3DRC Medtronic 1 RV04LSX 671055 691612 389594 1 catheter (DH00WTH) GUIDE 6FR EBU Medtronic 1 [id number] 102201 37682 389752 0 3.0 SH catheter ([id number]) FELICIA RX 3.0 x Medtronic 1 [id number] 851512 7277049 320339 5 [id number] 15 stent ([id number]) FELICIA RX 3.5 x Medtronic 1 [id number] 278380 0347768 315161 5 [id number] 22 stent ([id number]) EXOSEAL 6Fr Cardinal 1 EX600 075480 501873 664985 1 0 (EX600) Health Signature Audit [place] Stage Time Signature Unsigned Intra-Procedure 10/28/2018 Elsa Tatum 9:38:42 AM Counts RT(R) RT(R) 10/28/2018 9:46:58 AM Intra-Procedure 10/28/2018 Elsa 9:48:26 AM Counts RT(R) Signatures Monitor : Elsa Signature : Counts RT Date : Time : [address] [place] [address]
[~2018-10-27 12:28] MED LIST changes: +CELEBREX 100 M100 MG PO
[2018-10-27 13:01] VITALS: BP 176/84
[2018-10-27] MEDS ORDERED: ISOSORBIDE MONO30 M1 PO (13:01)
[2018-10-27] MEDS ORDERED: LIPITOR40 MG PO (13:01)
[2018-10-27] MEDS ORDERED: LASIX40 MG PO (13:01)
[2018-10-27] MEDS ORDERED: PROTONIX40 MG PO (13:02)
[2018-10-27] MEDS ORDERED: METOPROLOL TART25 MG PO (13:02)
[2018-10-27] MEDS ORDERED: ZOVIRAX800 MG PO (13:02)
[2018-10-27] MEDS ORDERED: DICLOFENAC SODI50 MG PO (13:03)
[2018-10-27] MEDS ORDERED: PREMARIN0.3 MG PO (13:03)
[2018-10-27] MEDS ORDERED: HYDROXYCHLOROQUINE PO (13:06)
[2018-10-27] MEDS ORDERED: ROBAXIN500 MG PO (13:08)
[2018-10-27] MEDS ORDERED: IPRAT-ALBUT 0.5-3 ML UPD (13:08)
[2018-10-27] MEDS ORDERED: BROVANA15 MCG/2 M INH (13:09)
[2018-10-27] MEDS ORDERED: PULMICORT0.5 MG/21 INH (13:09)
[2018-10-27] MEDS ORDERED: CATAPRES0.1 MG PO (13:10)
[2018-10-27] MEDS ORDERED: NITROSTAT0.4 MG SL (13:11)
[2018-10-27] MEDS ORDERED: CYCLOBENZAPRINE10 MG PO (13:11)
[2018-10-27] MEDS ORDERED: ALBUTEROL SULF8.5 GM INH (13:12)
[2018-10-27] MEDS ORDERED: CENTRUM SILVER1 EAC3 PO (13:17)
[2018-10-27] MEDS ORDERED: BAYER CHEWABLE81 MG PO (13:17)
[2018-10-27] MEDS ORDERED: VITAMIN D5000 UNIT PO (13:17)
[2018-10-27] MEDS ORDERED: CALCIUM PO (13:18)
[2018-10-27] MEDS ORDERED: POTASSIUM99 M1 PO (13:20)
[2018-10-27] MEDS ORDERED: MAGNESIUM OXID500 MG PO (13:20)
[2018-10-27] MEDS ORDERED: UBIQUINOL (13:21)
[2018-10-27 13:31] VITALS: BP 167/80
[2018-10-27 13:32] LABS: APTT 27.2 SECONDS (22.8-39.4); INR 0.97 (0.85-1.17); PROTIME 12.4 SECONDS (11.6-15.0)
[2018-10-27 13:40] LABS: ALBUMIN 3.6 g/dL (3.4-5.0); ALKALINE PHOSPHATASE 76 U/L (46-116); ALT (SGPT) 37 U/L (10-68); BILIRUBIN - TOTAL 0.43 mg/dL (0.2-1.3); CALC OSMOLALITY 284 mosm/kg (275-300); CALCIUM 8.8 mg/dL (8.5-10.1); CARBON DIOXIDE 33.2 mmol/L (21.0-32.0); CHLORIDE - SERUM 103 mmol/L (98-107); CREATININE - SERUM 0.8 mg/dL (0.6-1.3); GLUCOSE 101 mg/dL (74-106); POTASSIUM - SERUM 3.6 mmol/L (3.5-5.1); PROTEIN - SERUM 6.9 g/dL (6.4-8.2); SODIUM 143 mmol/L (136-145); UREA NITROGEN 13 mg/dL (7-18); eGFR NON AFRICAN AMERICAN 73 mL/min (90-120)
[2018-10-27 13:42] LABS: BASOPHILS 0.4 % (0-2); EOSINOPHILS 5.8 % (0-7); HEMATOCRIT 38.1 % (36.0-48.0); HEMOGLOBIN 12.6 g/dL (12-16); LYMPHOCYTES 28.1 % (15-50); MCH 31.7 pg (26.0-34.0); MCHC 33.1 g/dL (31.0-37.0); MEAN PLATELET VOLUME 9.3 fL (7.4-10.4); MONOCYTES 6.5 % (2-11); NEUTROPHILS 59.2 % (40-80); PLATELET COUNT 156 10x3/uL (130-400); RBC 3.97 10x6/uL (4.00-5.40); RDW 12.6 % (11.5-14.5); WBC 5.5 10x3/uL (4.8-10.8)
[2018-10-27 13:51] LABS: CKMB 1.3 U/L (0.0-3.6); CREATINE KINASE 67 UL (21-215); TROPONIN-I < 0.017 ng/mL (0.000-0.060)
[2018-10-27 13:57] LABS: APPEARANCE CLEAR (CLEAR); BILIRUBIN NEGATIVE (NEGATIVE); COLOR STRAW (YELLOW); GLUCOSE NEGATIVE (NEGATIVE); KETONE NEGATIVE (NEGATIVE); NITRITE NEGATIVE (NEGATIVE); PROTEIN NEGATIVE (NEGATIVE); SPECIFIC GRAVITY 1.015 (1.005-1.020); UROBILINOGEN NORMAL (NORMAL)
[2018-10-27 14:01] VITALS: BP 133/55
[2018-10-27 15:45] VITALS: BP 98/56
--- NOTE | 2018-10-27 17:02 | NUR ---
PT SITTING UPRIGHT IN BED, ALERT AND ORIENTED. RESPIRATIONS EVEN AND UNLABORED. PT DENIES ANY PAIN OR NEEDS AT THIS TIME. [facility] MEAL TRAY PROVIDED. ROOM 2118 ASSIGNED AT 1456. ED NURSE ATTEMPTING TO CALL REPORT SINCE 1650.
[2018-10-27 17:53] VITALS: BP 149/50; BMI 25.2
--- NOTE | 2018-10-27 19:46 | NUR ---
RESUMED CARE OF PT, LYING IN BED RESPIRATIONS EVEN AND UNLABORED ON 2LPM VIA NC. RIGHT FOREARM INFUSING NS @ 125. 57 SB ON TELEMETRY. CALL LIGHT IN REACH. SEE NURSE ASSESSMENT.
[2018-10-27 20:00] VITALS: BP 128/48
[2018-10-27 20:32] LABS: CREATINE KINASE 54 UL (21-215); TROPONIN-I 0.018 ng/mL (0.000-0.060)
[2018-10-28] VITALS: BP 118/49
[2018-10-28 04:00] VITALS: BP 119/54
[2018-10-28 04:00] LABS: BASOPHILS 0.5 % (0-2); EOSINOPHILS 7.4 % (0-7); HEMATOCRIT 33.6 % (36.0-48.0); LYMPHOCYTES 26.6 % (15-50); MCH 31.4 pg (26.0-34.0); MCHC 32.7 g/dL (31.0-37.0); MEAN PLATELET VOLUME 9.2 fL (7.4-10.4); MONOCYTES 8.2 % (2-11); NEUTROPHILS 57.3 % (40-80); PLATELET COUNT 142 10x3/uL (130-400); WBC 6.5 10x3/uL (4.8-10.8)
[2018-10-28 04:12] LABS: ALBUMIN 2.8 g/dL (3.4-5.0); ALKALINE PHOSPHATASE 57 U/L (46-116); ALT (SGPT) 24 U/L (10-68); BILIRUBIN - TOTAL 0.35 mg/dL (0.2-1.3); CALC OSMOLALITY 281 mosm/kg (275-300); CALCIUM 8.1 mg/dL (8.5-10.1); CARBON DIOXIDE 28.7 mmol/L (21.0-32.0); CHLORIDE - SERUM 104 mmol/L (98-107); CKMB 0.7 U/L (0.0-3.6); CREATINE KINASE 47 UL (21-215); CREATININE - SERUM 0.8 mg/dL (0.6-1.3); GLUCOSE 103 mg/dL (74-106); POTASSIUM - SERUM 3.6 mmol/L (3.5-5.1); PROTEIN - SERUM 5.5 g/dL (6.4-8.2); SODIUM 141 mmol/L (136-145); TROPONIN-I < 0.017 ng/mL (0.000-0.060); UREA NITROGEN 16 mg/dL (7-18); eGFR NON AFRICAN AMERICAN 73 mL/min (90-120)
--- NOTE | 2018-10-28 05:20 | NUR ---
NO CHANGES FROM PREVIOUS ASSESSMENT, REMAINS NPO. CALL LIGHT IN REACH.
[2018-10-28 08:00] VITALS: BP 128/60
[2018-10-28 11:57] VITALS: BP 108/96
[2018-10-28 12:56] VITALS: BMI 25.1
[2018-10-28 13:35] VITALS: Ht 152.4 cm; Wt 58.5 kg
--- NOTE | 2018-10-28 15:01 | MORECARE ---
CASE MANAGEMENT DISCHARGE SUMMARY PATIENT: BRITT ETIENNE UNIT: [id number] ADM DATE: 10/27/18 AGE: 83 : 37 SEX: F ROOM/BED: D.[facility]8 AUTHOR: KASEY COTO PHYSICIAN: REFERRING PHYSICIAN: FELIX DUMONT MD DATE OF SERVICE: 10/28/18 Discharge Plan Patient Name: BRITT ETIENNE Facility: [facility]:[place] : 1935 Planned Disposition: Anticipated Discharge Date: Discharge Date: Expected LOS: Initial Reviewer: [email or web address] Initial Review Date: 10/27/2018 Generated: 10/28/18 4:01 pm Coverage Notice Reviewer: [email or web address] - Lyric Felch Notice Issued Date-Time: 10/28/2018 14:39 Notice Type: Medicare Outpatient Observation Notice Notice Delivered To: Patient Relationship to Patient: Self Tool Crib Clerk Name: Delivery Method: HAND - Hand Delivered Ramonita Days: Prior Verbal Notification: Recipient Understood Notice: Yes Recipient Signature: Yes Med Rec Note Co-signed by Attending: Coverage Notice Comment: KRISTYN DISCUSSED WITH PATIENT AND SPOUSE ASHLEY TOSCANO, AFTER VERBAL CONSENT OBTAINED. Patient Name: BRITT ETIENNE Page [phone] at 1501 All edits/amendments must be made on the electronic document DICTATION DATE: 10/28/18 1501 FURNISHINGS CONSERVATOR: NANCY 10/28/18 1501 RPT#: [id number] DC DATE: STATUS: ADM IN [facility] [address] [place] [address] END OF REPORT
[2018-10-28 15:03] VITALS: BP 142/41
--- NOTE | 2018-10-28 19:49 | NUR ---
RECIEVED RESTING IN BED WITH EYES OPEN. ALERT AND ORIENTED X4. DSG TO GROIN CDI. O2@ 2 LITERS PER N/C. IV TO RIGHT FA SL.. TELEMENTRY IN PLACE. DENIES ANY NEEDS AT THIS TIME.
[2018-10-28 22:08] VITALS: BP 130/52
[2018-10-29 05:37] LABS: BASOPHILS 0.5 % (0-2); EOSINOPHILS 7.5 % (0-7); HEMATOCRIT 31.6 % (36.0-48.0); HEMOGLOBIN 10.4 g/dL (12-16); IMMATURE GRANULOCYTES 0.2 % (0-5); LYMPHOCYTES 29.7 % (15-50); MCH 31.7 pg (26.0-34.0); MCHC 32.9 g/dL (31.0-37.0); MCV 96.3 fL (80.0-100.0); MEAN PLATELET VOLUME 9.3 fL (7.4-10.4); MONOCYTES 9.2 % (2-11); NEUTROPHILS 52.9 % (40-80); PLATELET COUNT 127 10x3/uL (130-400); RBC 3.28 10x6/uL (4.00-5.40); RDW 12.9 % (11.5-14.5); WBC 5.6 10x3/uL (4.8-10.8)
[2018-10-29 06:09] LABS: CALC OSMOLALITY 286 mosm/kg (275-300); CALCIUM 8.2 mg/dL (8.5-10.1); CARBON DIOXIDE 27.4 mmol/L (21.0-32.0); CHLORIDE - SERUM 106 mmol/L (98-107); CREATININE - SERUM 0.6 mg/dL (0.6-1.3); GLUCOSE 100 mg/dL (74-106); POTASSIUM - SERUM 3.6 mmol/L (3.5-5.1); SODIUM 144 mmol/L (136-145); UREA NITROGEN 12 mg/dL (7-18); eGFR NON AFRICAN AMERICAN > 90 mL/min (90-120)
--- NOTE | 2018-10-29 07:30 | NUR ---
RESTING QUIETLY EYES CLOSED RESP UNLABORED NAD NOTED
[2018-10-29 07:40] VITALS: BP 113/48
[2018-10-29 11:14] VITALS: BP 142/58
[2018-10-29] MEDS ORDERED: LOPRESSOR25 MG PO (11:39)
[2018-10-29] MEDS ORDERED: PLAVIX75 MG PO (11:39)
[2018-10-29 15:20] VITALS: BP 195/86
--- NOTE | 2018-10-29 18:46 | NUR ---
REVIEWED DISCHARGE INSTRUCTIONS WITH PT STATES UNDERSTANDING COPY GIVEN DCD SALINE LOCK TO RFA WITH IV CATHETER INTACT SITE FREE OF REDNESS OR EDEMA PT DISCHARGED HOME IN STABLE CONDITION WITH ALL PERSONAL BELONGINGS LEFT UNIT VIA W/C
--- NOTE | 2018-10-31 08:44 | MORECARE ---
CASE MANAGEMENT DISCHARGE SUMMARY PATIENT: BRITT ETIENNE UNIT: [id number] ADM DATE: 10/27/18 AGE: 83 : 37 SEX: F ROOM/BED: D.2785 AUTHOR: KASEY COTO PHYSICIAN: REFERRING PHYSICIAN: FELIX DUMONT MD DATE OF SERVICE: 10/31/18 Discharge Plan Patient Name: BRITT ETIENNE [facility] [facility] 1935 Planned Disposition: Home Anticipated Discharge Date: 10/29/18 Discharge Date: 10/29/2018 Expected LOS: 2 Initial Reviewer: [email or web address] Initial Review Date: 10/27/2018 Generated: 10/31/18 9:43 am Coverage Notice Reviewer: [email or web address] Madhavi Hernandes Notice Issued Date-Time: 10/28/2018 14:39 Notice Type: Medicare Outpatient Observation Notice Notice Delivered To: Patient Relationship to Patient: Self Access Assoc Name: Delivery Method: HAND - Hand Delivered Ramonita Days: Prior Verbal Notification: Recipient Understood Notice: Yes Recipient Signature: Yes Med Rec Note Co-signed by Attending: Coverage Notice Comment: SIMONS DISCUSSED WITH PATIENT AND SPOUSE ASHLEY TOSCANO, AFTER VERBAL CONSENT OBTAINED. Last DP export: 10/28/18 2:01 p Patient Name: BRITT ETIENNE Page [phone] at 0844 All edits/amendments must be made on the electronic document DICTATION DATE: 10/31/18842 BILL COLLECTOR: NANCY 10/31/1843 RPT#: [id number] DC DATE:10/29/18 STATUS: DIS IN [facility] [address] [facility] [place] [address] END OF REPORT
--- NOTE | 2018-10-31 11:46 | OP ---
PATIENT NAME: BRITT ETIENNE MEDICAL RECORD: [id number] :[birth year] LOCATION:D.M2 D.2118 ADMISSION DATE:10/27/18 SURGEON: TERESITA ANNE MD DATE OF OPERATION: 10/28/2018 PROCEDURES: 1. PTCA and stent of left main. 2. PTCA and stent of RCA. 3. Intravascular ultrasound of left main. 4. Intravascular ultrasound of RCA. 5. Left heart catheterization. 6. Selective coronary angiography. 7. Left ventriculogram. 8. DE JESUS angiography and vein graft angiography. INDICATIONS: Unstable angina and coronary artery disease. PROCEDURE PERFORMED: After informed consent was obtained and after a detailed explanation of risks, benefits as well as alternative therapies, the patient elected to proceed with angiogram and angioplasty. The right femoral area was prepped and draped in normal sterile fashion. Right femoral artery was cannulated via modified Seldinger technique with placement of 6-[place]enezuelan sheath. All catheters exchanged through this sheath. FINDINGS: Left ventriculogram was performed in standard 30-degree MURPHY view, reveals good cardiac wall motion throughout all segments. Overall ejection fraction estimated 60%. SELECTIVE CORONARY ANGIOGRAPHY: 1. Left main has previously placed stent with greater than 80% in-stent restenosis confirmed by intravascular ultrasound. 2. Left anterior descending is totally occluded. 3. The left circumflex is patent. The left main stenosis impinges flow down the circumflex itself. The obtuse marginal from the circumflex is totally occluded. 4. DE JESUS to the LAD is patent. Distal LAD is widely patent. 5. Vein graft to the first obtuse marginal is patent; however, this does not backfill the circumflex itself and the terminal obtuse marginal. 6. The right coronary is with previously placed stents. There is greater than 80% in-stent restenosis in the mid vessel. PTCA AND STENT OF LEFT MAIN: The stent used was a 3.0 x 15-mm Richard. The result was 0% residual stenosis. PTCA AND STENT OF THE RCA: The stent used was a 3.0 x 22-mm Richard. Result was 0% residual stenosis. OVERALL IMPRESSION: Successful PTCA and stent of the left main and RCA, both going from 70% to 80% initial stenosis to 0% residual. TRANSINT:[id number] Voice Confirmation ID: [id number] DOCUMENT ID: [id number] OPERATIVE REPORT [id number] BRITT ETIENNE JEFFREY MD at 1146 CC: [id number] DICTATION DATE: 10/28/1839 RESPIRATORY TECHNICIAN: 10/28/18 1117 DIS IN 10/29/18 [address] [place] [address]
== END 2018-10-29 18:46 | disposition home or self-care (01) ==
LOC: D.ER 12:28 → D.EDHOLD 15:05 → D.M2 15:06 → OBSVTIME 15:06 → D.M2 10-29 18:46
PROVIDERS: Family Medicine; ADMIT Internal Medicine Nephrology
DX: I25.110 Atherosclerotic heart disease of native coronary artery with unstable angina pectoris (principal); T82.855A Stenosis of coronary artery stent, initial encounter; Y83.8 Other surgical procedures as the cause of abnormal reaction of the patient, or of later complication, without mention of misadventure at the time of the procedure; D50.9 Iron deficiency anemia, unspecified; I16.1 Hypertensive emergency; J44.9 Chronic obstructive pulmonary disease, unspecified; K21.9 Gastro-esophageal reflux disease without esophagitis; G40.909 Epilepsy, unspecified, not intractable, without status epilepticus; I27.20 Pulmonary hypertension, unspecified
CPT/HCPCS: 93459; 92978; 92979; C9600 ×2

== ENCOUNTER 2019-08-23 12:39 | Emergency (ER) | payer MEDICARE ==
[~2019-08-23] VITALS: Ht 152.4 cm; Wt 56.8 kg
[~2019-08-23 12:39] MED LIST changes: +ALBUTEROL SULF8.5 GM INH; +BAYER CHEWABLE81 MG PO; +HYDROXYCHLOROQUINE PO; +IPRAT-ALBUT 0.5-3 ML UPD; +LASIX40 MG PO; +LIPITOR40 MG PO; +LOPRESSOR25 MG PO; +MAGNESIUM OXID500 MG PO; +METOPROLOL TART25 MG PO; +PULMICORT0.5 MG/21 INH; +ROBAXIN500 MG PO; +UBIQUINOL; +VITAMIN D5000 UNIT PO
[2019-08-23 12:41] VITALS: Ht 152.4 cm; Wt 56.8 kg
[2019-08-23] MEDS ORDERED: ALDACTONE25 MG PO (13:05)
[2019-08-23] MEDS ORDERED: COREG12.5 MG PO (13:05)
[2019-08-23] MEDS ORDERED: SINGULAIR10 MG PO (13:06)
[2019-08-23] MEDS ORDERED: DEXILANT60 MG PO (13:06)
[2019-08-23] MEDS ORDERED: ZOVIRAX800 MG PO (13:06)
[2019-08-23] MEDS ORDERED: PEPCID40 MG PO (13:06)
[2019-08-23] MEDS ORDERED: PULMICORT0.25 MG/1 INH (13:07)
[2019-08-23 13:19] LABS: BASOPHILS 0.2 % (0-2); EOSINOPHILS 2.7 % (0-7); HEMATOCRIT 43.7 % (36.0-48.0); HEMOGLOBIN 14.5 g/dL (12-16); IMMATURE GRANULOCYTES 0.2 % (0-5); LYMPHOCYTES 18.8 % (15-50); MCH 32.4 pg (26.0-34.0); MCHC 33.2 g/dL (31.0-37.0); MCV 97.5 fL (80.0-100.0); MEAN PLATELET VOLUME 8.9 fL (7.4-10.4); MONOCYTES 10.5 % (2-11); NEUTROPHILS 67.6 % (40-80); RBC 4.48 10x6/uL (4.00-5.40); RDW 13.7 % (11.5-14.5); WBC 6.6 10x3/uL (4.8-10.8)
[2019-08-23 13:20] LABS: PLATELET COUNT 189 10x3/uL (130-400)
[2019-08-23 13:28] LABS: CALC OSMOLALITY 269 mosm/kg (275-300); CALCIUM 9.2 mg/dL (8.5-10.1); CARBON DIOXIDE 33.6 mmol/L (21.0-32.0); CHLORIDE - SERUM 97 mmol/L (98-107); CREATININE - SERUM 0.7 mg/dL (0.6-1.3); GLUCOSE 98 mg/dL (74-106); SODIUM 136 mmol/L (136-145); UREA NITROGEN 8 mg/dL (7-18); eGFR NON AFRICAN AMERICAN 85 mL/min (90-120)
[2019-08-23 13:45] LABS: ALBUMIN 3.1 g/dL (3.4-5.0); ALKALINE PHOSPHATASE 69 U/L (46-116); ALT (SGPT) 32 U/L (10-68); BILIRUBIN - TOTAL 0.52 mg/dL (0.2-1.3); CKMB 0.7 U/L (0.0-3.6); CREATINE KINASE 33 UL (21-215); PRO BNP 161 pg/mL (0-450); PROTEIN - SERUM 6.9 g/dL (6.4-8.2)
[2019-08-23 13:46] LABS: TROPONIN-I < 0.017 ng/mL (0.000-0.060)
[2019-08-23 13:57] LABS: APTT 26.5 SECONDS (22.8-39.4); INR 0.98 (0.85-1.17); PROTIME 12.5 SECONDS (11.6-15.0)
[2019-08-23] MEDS ORDERED: ALBUTEROL SULF8.5 GM INH (15:14)
[2019-08-23] MEDS ORDERED: SPIRIVA18 MCG INH (15:14)
[2019-08-23 15:43] VITALS: BP 147/82
== END 2019-08-23 15:43 | disposition home or self-care (01) ==
LOC: D.ER 12:39
PROVIDERS: Family Medicine
DX: J44.1 Chronic obstructive pulmonary disease with (acute) exacerbation (principal); Z91.14 Patient's other noncompliance with medication regimen; I11.0 Hypertensive heart disease with heart failure; Z95.5 Presence of coronary angioplasty implant and graft; Z95.1 Presence of aortocoronary bypass graft; I25.810 Atherosclerosis of coronary artery bypass graft(s) without angina pectoris; I73.9 Peripheral vascular disease, unspecified; M54.9 Dorsalgia, unspecified; M81.0 Age-related osteoporosis without current pathological fracture; K21.9 Gastro-esophageal reflux disease without esophagitis; N39.3 Stress incontinence (female) (male)

== ENCOUNTER → 2020-04-19 12:56 | Outpatient (CLI) | payer MEDICARE ==
[2019-10-17 08:20] VITALS: BMI 23.7
[~2020-04-19 12:56] MED LIST changes: +ALDACTONE25 MG PO; +COREG12.5 MG PO; +DEXILANT60 MG PO; +PEPCID40 MG PO; +PULMICORT0.25 MG/1 INH; +SPIRIVA18 MCG INH
== END | disposition home or self-care (01) ==
LOC: D.LAB 12:55
PROVIDERS: ATTEND Internal Medicine Pulmonary Disease
DX: Z11.59 Encounter for screening for other viral diseases (principal)

== ENCOUNTER → 2020-04-22 08:26 | Outpatient (CLI) | payer MEDICARE ==
[2019-10-17 08:20] VITALS: BMI 23.7
== END | disposition home or self-care (01) ==
LOC: D.RT 08:26
PROVIDERS: ATTEND Internal Medicine Pulmonary Disease
DX: J44.9 Chronic obstructive pulmonary disease, unspecified (principal); R91.8 Other nonspecific abnormal finding of lung field

== ENCOUNTER → 2020-06-18 08:50 | Outpatient (CLI) | payer MEDICARE ==
[2019-10-17 08:20] VITALS: BMI 23.7
== END | disposition home or self-care (01) ==
LOC: D.HCCARDIO 08:50
PROVIDERS: ATTEND Internal Medicine Cardiovascular Disease
DX: I25.10 Atherosclerotic heart disease of native coronary artery without angina pectoris (principal)

== ENCOUNTER 2020-12-27 18:18 | Inpatient (IN) | payer MEDICARE ==
[~2020-12-27] VITALS: Ht 165.1 cm; Wt 61.2 kg
--- NOTE | 2020-12-27 18:36 | NUR ---
PATIENT REPORTS ALSO TAKING 0.1MG CLONIDINE.
[2020-12-27 19:16] LABS: BASOPHILS 0.6 % (0-2); EOSINOPHILS 2.9 % (0-7); HEMOGLOBIN 14.2 g/dL (12-16); IMMATURE GRANULOCYTES 0.4 % (0-5); LYMPHOCYTE ABS# 1.93 10x3/uL (1.18-3.74); LYMPHOCYTES 27.5 % (15-50); MCH 33.1 pg (26.0-34.0); MCHC 33.8 g/dL (31.0-37.0); MCV 97.9 fL (80.0-100.0); MEAN PLATELET VOLUME 9.4 fL (7.4-10.4); MONOCYTES 12.7 % (2-11); NEUTROPHIL ABS# 3.92 10x3/uL (1.56-6.13); NEUTROPHILS 55.9 % (40-80); RBC 4.29 10x6/uL (4.00-5.40); RDW 13.6 % (11.5-14.5)
[2020-12-27 19:18] VITALS: BP 122/62
[2020-12-27 19:21] LABS: PLATELET COUNT 197 10x3/uL (130-400)
[2020-12-27 19:26] LABS: APTT 25.3 SECONDS (22.8-39.4); PROTIME 12.2 SECONDS (11.6-15.0)
[2020-12-27 19:44] LABS: ALBUMIN 3.7 g/dL (3.4-5.0); ALKALINE PHOSPHATASE 65 U/L (30-120); ALT (SGPT) 29 U/L (10-68); BILIRUBIN - TOTAL 0.25 mg/dL (0.2-1.3); CALC OSMOLALITY 275 mosm/kg (275-300); CARBON DIOXIDE 29.8 mmol/L (21.0-32.0); CHLORIDE - SERUM 98 mmol/L (98-107); CKMB 1.8 U/L (0.0-3.6); CREATINE KINASE 98 UL (21-215); CREATININE - SERUM 0.8 mg/dL (0.6-1.3); GLUCOSE 96 mg/dL (74-106); POTASSIUM - SERUM 3.6 mmol/L (3.5-5.1); PROTEIN - SERUM 7.2 g/dL (6.4-8.2); SODIUM 136 mmol/L (136-145); UREA NITROGEN 25 mg/dL (7-18); eGFR NON AFRICAN AMERICAN 72 mL/min (90-120)
[2020-12-27 19:45] VITALS: BP 140/57
[2020-12-27 19:51] LABS: TROPONIN-I < 0.017 ng/mL (0.000-0.060)
[2020-12-27 20:31] VITALS: BP 121/44
[2020-12-27 21:01] VITALS: BP 127/48
[2020-12-27 21:30] VITALS: BP 138/58
--- NOTE | 2020-12-27 22:40 | NUR ---
PT RECEIVED VIA WC TO ROOM 2136 ACCOMPANIED BY ED RN. PT AWAKE, ALERT AMBULATING WITH ASSIST OF HER HOME WALKER. PT REPORTS MILD PAIN 1-2/10 IN HER CHEST BUT REPORTS THIS IS MUCH BETTER THAN EARLIER. SHE REQUESTS HER PRN LUNESTA, SHE DENIES ANY OTHER ISSUES. ADMIT COMPLETE, PIV R FA INFUSING. CALL IGHT IN REACH WILL CONTINUE TO MONITOR
[2020-12-27 22:50] VITALS: BP 145/61; BMI 22.5
[2020-12-28 01:56] VITALS: BP 102/44
[2020-12-28 02:41] LABS: CKMB 1.5 U/L (0.0-3.6); CREATINE KINASE 77 UL (21-215)
[2020-12-28 02:42] LABS: TROPONIN-I < 0.017 ng/mL (0.000-0.060)
[2020-12-28 06:43] VITALS: BP 110/42
[2020-12-28 06:57] LABS: BASOPHILS 0.4 % (0-2); EOSINOPHILS 4.9 % (0-7); HEMATOCRIT 36.4 % (36.0-48.0); HEMOGLOBIN 12.1 g/dL (12-16); IMMATURE GRANULOCYTES 0.2 % (0-5); LYMPHOCYTE ABS# 1.49 10x3/uL (1.18-3.74); LYMPHOCYTES 33.3 % (15-50); MCH 32.9 pg (26.0-34.0); MCHC 33.2 g/dL (31.0-37.0); MCV 98.9 fL (80.0-100.0); MEAN PLATELET VOLUME 9.1 fL (7.4-10.4); NEUTROPHIL ABS# 2.07 10x3/uL (1.56-6.13); NEUTROPHILS 46.2 % (40-80); RBC 3.68 10x6/uL (4.00-5.40); RDW 13.7 % (11.5-14.5)
[2020-12-28 07:07] LABS: PLATELET COUNT 156 10x3/uL (130-400); WBC 4.5 10x3/uL (4.8-10.8)
[2020-12-28 07:24] LABS: ALBUMIN 2.9 g/dL (3.4-5.0); ALKALINE PHOSPHATASE 50 U/L (30-120); ALT (SGPT) 26 U/L (10-68); BILIRUBIN - TOTAL 0.28 mg/dL (0.2-1.3); CALCIUM 8.7 mg/dL (8.5-10.1); CARBON DIOXIDE 31.2 mmol/L (21.0-32.0); CHLORIDE - SERUM 104 mmol/L (98-107); CKMB 1.2 U/L (0.0-3.6); CREATINE KINASE 67 UL (21-215); CREATININE - SERUM 0.7 mg/dL (0.6-1.3); GLUCOSE 105 mg/dL (74-106); MAGNESIUM - SERUM 1.9 mg/dL (1.8-2.4); POTASSIUM - SERUM 3.6 mmol/L (3.5-5.1); PRO BNP 265 pg/mL (0-450); PROTEIN - SERUM 5.7 g/dL (6.4-8.2); SODIUM 140 mmol/L (136-145); eGFR NON AFRICAN AMERICAN 85 mL/min (90-120)
[2020-12-28 07:25] LABS: CALC OSMOLALITY 279 mosm/kg (275-300); TROPONIN-I < 0.017 ng/mL (0.000-0.060); UREA NITROGEN 14 mg/dL (7-18)
[2020-12-28 09:00] VITALS: BP 107/45
--- NOTE | 2020-12-28 10:47 | NUR ---
PATIENT AAOX4 SITTING HIGH FOWLERS, NO S/S OF DISTRESS, RESP EVEN AND NON LABORED, MEDICATIONS ADMINISTERED WITH NO COMPLICATIONS, NO FURTHRT NEEDS AT THIS TIME, YONATAN TOLEDO
[2020-12-28 12:35] VITALS: BP 114/53
[2020-12-28 14:09] LABS: ALKALINE PHOSPHATASE 53 U/L (30-120); ALT (SGPT) 25 U/L (10-68); BILIRUBIN - TOTAL 0.27 mg/dL (0.2-1.3); CALC OSMOLALITY 280 mosm/kg (275-300); CALCIUM 8.9 mg/dL (8.5-10.1); CARBON DIOXIDE 29.7 mmol/L (21.0-32.0); CHLORIDE - SERUM 104 mmol/L (98-107); CKMB 1.2 U/L (0.0-3.6); CREATINE KINASE 60 UL (21-215); CREATININE - SERUM 0.7 mg/dL (0.6-1.3); GLUCOSE 138 mg/dL (74-106); MAGNESIUM - SERUM 1.8 mg/dL (1.8-2.4); PHOSPHOROUS 3.8 mg/dL (2.5-4.9); POTASSIUM - SERUM 3.8 mmol/L (3.5-5.1); PROTEIN - SERUM 5.9 g/dL (6.4-8.2); SODIUM 140 mmol/L (136-145); UREA NITROGEN 12 mg/dL (7-18); eGFR NON AFRICAN AMERICAN 85 mL/min (90-120)
[2020-12-28 14:10] LABS: TROPONIN-I < 0.017 ng/mL (0.000-0.060)
--- NOTE | 2020-12-28 15:19 | NUR ---
PATIENT STATES SHE IS HAVING CHEST PAIN, PATCH APPLIED AND VITALS TAKEN, BP-118/58 HR 63
[2020-12-28 15:34] VITALS: Ht 165.1 cm; Wt 61.2 kg
--- NOTE | 2020-12-28 16:17 | NUR ---
BP-142/62 HR-63 O2-97 PATIENT IS HAVING CHEST PAIN STILL ORAL NITRO GIVEN AND WILL GIVE ANOTHER ONE IN 5 MINUTES IF CHEST PAIN CONTINUES
--- NOTE | 2020-12-28 19:00 | NUR ---
RECEIVED BEDSIDE REPORT. ROUNDING COMPLETE. PATIENT IS ALERT AND ORIENTED, RESTING COMFORTABLY IN BED. RESPIRATIONS ARE EVEN AND UNLABORED. NO S/S OF DISTRESS. NO C/O PAIN. DENIES NEEDS AT THIS TIME. CALL LIGHT WITHIN REACH. WILL CPOC.
[2020-12-28 21:38] VITALS: BP 94/57
[2020-12-29 00:45] VITALS: BP 115/51
[2020-12-29 03:28] VITALS: BP 114/51
[2020-12-29 04:57] LABS: BASOPHILS 0.5 % (0-2); EOSINOPHILS 5.7 % (0-7); HEMATOCRIT 36.8 % (36.0-48.0); HEMOGLOBIN 12.2 g/dL (12-16); LYMPHOCYTE ABS# 1.94 10x3/uL (1.18-3.74); LYMPHOCYTES 35.5 % (15-50); MCH 32.8 pg (26.0-34.0); MCHC 33.2 g/dL (31.0-37.0); MCV 98.9 fL (80.0-100.0); MEAN PLATELET VOLUME 9.3 fL (7.4-10.4); MONOCYTES 12.5 % (2-11); NEUTROPHILS 45.8 % (40-80); PLATELET COUNT 181 10x3/uL (130-400); RBC 3.72 10x6/uL (4.00-5.40); RDW 13.9 % (11.5-14.5); WBC 5.5 10x3/uL (4.8-10.8)
[2020-12-29 05:16] LABS: ALBUMIN 2.9 g/dL (3.4-5.0); ALKALINE PHOSPHATASE 51 U/L (30-120); ALT (SGPT) 26 U/L (10-68); BILIRUBIN - TOTAL 0.28 mg/dL (0.2-1.3); CALC OSMOLALITY 277 mosm/kg (275-300); CALCIUM 8.6 mg/dL (8.5-10.1); CARBON DIOXIDE 28.3 mmol/L (21.0-32.0); CHLORIDE - SERUM 106 mmol/L (98-107); CREATININE - SERUM 0.6 mg/dL (0.6-1.3); GLUCOSE 106 mg/dL (74-106); MAGNESIUM - SERUM 1.9 mg/dL (1.8-2.4); PHOSPHOROUS 3.5 mg/dL (2.5-4.9); POTASSIUM - SERUM 3.5 mmol/L (3.5-5.1); PROTEIN - SERUM 5.7 g/dL (6.4-8.2); SODIUM 140 mmol/L (136-145); UREA NITROGEN 10 mg/dL (7-18); eGFR NON AFRICAN AMERICAN > 90 mL/min (90-120)
--- NOTE | 2020-12-29 07:20 | NUR ---
RECIEVE REPORT. ALERT AND ORIENTED X4. SITTING UP IN BED. DENIES PAIN OR SOB. SINUS RHYTHM ON TELEMETRY. DENIES ANY NEEDS. CONTINUE PLAN OF CARE AND SAFETY PRECAUTIONS.
[2020-12-29 09:50] VITALS: BP 145/60
[2020-12-29 13:13] VITALS: BP 103/47
--- NOTE | 2020-12-29 16:25 | EC ---
PATIENT:BRITT ETIENNE DATE OF SERVICE: 12/28/20 SEX: F MEDICAL RECORD: [id number] DATE OF : 39 LOCATION:[address]. [address].213 AGE OF PATIENT: 85 ADMISSION DATE: 12/28/20 REFERRING PHYSICIAN: INTERPRETING PHYSICIAN: VITA KING MD ECHOCARDIOGRAM REPORT ECHO CHARGES 4 ECHO COMPLETE Date: 12/28/20 CLINICAL DIAGNOSIS: PULMONARY HTN ECHOCARDIOGRAPHIC MEASUREMENTS (adult normal given) AC root (d.<3.7cm) 3.0 cm LV Septum d (<1.2 cm> 1.0 cm Valve Excursion 1.9 cm LV Septum (systole) 1.5 cm Left Atria (s.<4.0cm> 3.8 cm LVPW d(<1.2cm) 1.0 cm RV (d.<2.3cm) 4.4 cm LVPW (sytole) 1.2 cm LV diastole(<5.6CM) 4.6 cm MV E-F(>70mm/sec) cm LV systole 2.8 cm LVOT Diameter 1.9 cm MV exc.(>10mm) cm Est.ejection fraction (50-75%) 55 % DOPPLER: LVIT cm/sec A 98 cm/sec E 73 cm/sec LA cm/sec RVSP 38 mmHg LVOT 118 cm/sec AOP1/2T m/s Asc. Ao 153 cm/sec RVOT 60 cm/sec RA 4.8 cm/sec PA 68 cm/sec AV Gradient Peak 9 mmHg AV Mean 5 mmHg AV Area 2.2 cm MV Gradient Peak 4 mmHg MV Mean 1 mmHg MV Area cm COMMENTS: Dental Specialist: Russel RICO Curber: Lacey King TAPE# Pericardial Effusion N DATE OF SERVICE: 12/29/2020 CLINICAL INDICATION: Pulmonary hypertension. INTERPRETATION: Normal left ventricular chamber size and contractile function with ejection fraction of 55% to 60%. FINDINGS: Left atrial chamber appears normal. Mild dilatation of the right atrium and right ventricle. Mild right ventricular hypertrophy with normal contractile function. Aortic valve appears normal. No aortic stenosis. ECHOCARDIOGRAM REPORT [id number] BRITT ETIENNE Trivial aortic regurgitation. Mitral valve appears normal. Mild mitral annular calcification. Mild mitral regurgitation. Tricuspid valve appears normal. Mild tricuspid regurgitation. Tricuspid velocity 2.5 meters per second. Pulmonic valve appears normal. No pulmonary insufficiency. No pericardial effusion visualized. IMPRESSION: Normal left ventricular chamber size and contractile function, ejection fraction of 55% to 60%. TRANSINT:[id number] Voice Confirmation ID: [id number] DOCUMENT ID: [id number] VITA KING MD at 1625 CC: [id number] DICTATION DATE: 12/29/20 0948 SCOWMAN: 12/29/20 1059 ADM IN [place] [id number] [place] [id number]
--- NOTE | 2020-12-29 17:00 | NUR ---
ALERT AND ORIENTED X4. SITTING UP IN BED. SINUS RHYTHM ON TELEMETRY. SPOUSE AT BEDSIDE. DENIES ANY NEEDS AT THIS TIME. NO SIGNS OF DISTRESS. CONTINUE PLAN OF CARE AND SAFETY PRECAUTIONS.
[2020-12-29 17:13] VITALS: BP 134/57
--- NOTE | 2020-12-29 19:16 | NUR ---
RECEIVED BEDSIDE REPORT. ROUNDING COMPLETE. PATIENT IS ALERT AND ORIENTED, RESTING COMFORTABLY IN BED. RESPIRATIONS ARE EVEN AND UNLABORED. NO S/S OF DISTRESS. NO C/O PAIN. CALL LIGHT WITHIN REACH. WILL CPOC.
[2020-12-29 20:10] VITALS: BP 135/58
[2020-12-30 03:33] VITALS: BP 117/52
--- NOTE | 2020-12-30 07:20 | NUR ---
RECIEVE REPORT. RESTING IN BED WITH EYES CLOSED. NO SIGNS OF DISTRESS. SINUS YANCY 58 ON TELEMETRY. CONTINUE PLAN OF CARE AND SAFETY PRECAUTIONS.
[2020-12-30 08:29] VITALS: BP 112/54
[2020-12-30 10:36] LABS: BASOPHILS 0.6 % (0-2); EOSINOPHILS 4.6 % (0-7); HEMATOCRIT 40.3 % (36.0-48.0); HEMOGLOBIN 13.4 g/dL (12-16); IMMATURE GRANULOCYTES 0.4 % (0-5); LYMPHOCYTE ABS# 1.39 10x3/uL (1.18-3.74); LYMPHOCYTES 26.7 % (15-50); MCHC 33.3 g/dL (31.0-37.0); MCV 99.3 fL (80.0-100.0); MEAN PLATELET VOLUME 9.3 fL (7.4-10.4); MONOCYTES 11.3 % (2-11); NEUTROPHIL ABS# 2.93 10x3/uL (1.56-6.13); NEUTROPHILS 56.4 % (40-80); PLATELET COUNT 185 10x3/uL (130-400); RBC 4.06 10x6/uL (4.00-5.40); RDW 13.7 % (11.5-14.5); WBC 5.2 10x3/uL (4.8-10.8)
[2020-12-30 10:49] LABS: ALBUMIN 3.2 g/dL (3.4-5.0); ALKALINE PHOSPHATASE 59 U/L (30-120); ALT (SGPT) 25 U/L (10-68); BILIRUBIN - TOTAL 0.22 mg/dL (0.2-1.3); CALC OSMOLALITY 278 mosm/kg (275-300); CALCIUM 9.2 mg/dL (8.5-10.1); CARBON DIOXIDE 27.8 mmol/L (21.0-32.0); CHLORIDE - SERUM 106 mmol/L (98-107); CREATININE - SERUM 0.6 mg/dL (0.6-1.3); GLUCOSE 112 mg/dL (74-106); PHOSPHOROUS 3.8 mg/dL (2.5-4.9); POTASSIUM - SERUM 4.2 mmol/L (3.5-5.1); PROTEIN - SERUM 6.4 g/dL (6.4-8.2); SODIUM 140 mmol/L (136-145); UREA NITROGEN 10 mg/dL (7-18); eGFR NON AFRICAN AMERICAN > 90 mL/min (90-120)
[2020-12-30] MEDS ORDERED: ISOSORBIDE MONO60 M1 PO (11:29)
[2020-12-30 12:41] VITALS: BP 102/62
--- NOTE | 2020-12-30 14:53 | NUR ---
ALERT AND ORIENTED X4. SITTING UP IN BED. SPOUSE AT BEDSIDE. DC RT FA IV TIP INTACT. DISCHARGE INSTRUCTIONS GIVEN VERBALLY AND WRITTEN. DISCHARGE PAPERS SIGNED ON CHART. ESCORT TO RIDE VIA WHEELCHAIR. REMAINS FREE FROM INJURY.
== END 2020-12-30 14:56 | disposition home or self-care (01) | DRG 313 ==
LOC: D.ER 18:18 → D.M2 22:18 → OBSVTIME 22:18 → D.M2 12-28 18:07
PROVIDERS: Family Medicine; ADMIT Emergency Medicine; ATTEND Emergency Medicine
DX: R07.9 Chest pain, unspecified (principal); I10 Essential (primary) hypertension; E78.5 Hyperlipidemia, unspecified; I25.10 Atherosclerotic heart disease of native coronary artery without angina pectoris; J44.9 Chronic obstructive pulmonary disease, unspecified; I27.20 Pulmonary hypertension, unspecified; K21.9 Gastro-esophageal reflux disease without esophagitis; M19.90 Unspecified osteoarthritis, unspecified site; I70.209 Unspecified atherosclerosis of native arteries of extremities, unspecified extremity; J45.909 Unspecified asthma, uncomplicated; G47.00 Insomnia, unspecified; F32.9 Major depressive disorder, single episode, unspecified

== ENCOUNTER 2021-03-05 14:34 | Outpatient (CLI) | payer MEDICARE ==
[~2021-03-05] VITALS: Ht 157.5 cm; Wt 60.0 kg
[~2021-03-05 14:34] MED LIST changes: +ISOSORBIDE MONO60 M1 PO
[2021-03-05 14:58] VITALS: BP 137/68; Ht 157.5 cm; Wt 60.0 kg
--- NOTE | 2021-03-05 15:08 | NUR ---
PATIENT TO UNIT FOR PROLIA INJECTION
--- NOTE | 2021-03-05 15:22 | NUR ---
[id number] PATIENT HERE FOR OP PROLIA INJECTION. ASSESSMENT DONE. PROLIA INJECTION GIVEN ORDERED. DISCHARGED AMBULATORY AT 1537
== END 2021-03-05 15:30 | disposition home or self-care (01) ==
LOC: D.OPS 14:34
PROVIDERS: ATTEND Family Medicine
DX: M81.0 Age-related osteoporosis without current pathological fracture (principal); Z79.52 Long term (current) use of systemic steroids